=== PATIENT | female | born 1935 | race Caucasian/White ===

== ENCOUNTER 2023-12-04 15:15 | Inpatient (IN) ==
[2023-12-04] MEDS: ONDANSETRON INJ 2 MG/ML 2 ML VIAL IV STA (16:03)
[2023-12-04] MEDS: SODIUM CHLORIDE 0.9% 1,000 ML IV SCH ×2 (16:03→22:43)
[2023-12-04 16:22] LABS: Hematocrit (blood only) 25.5 % (37.0-47.0); Hemoglobin 8.2 g/dl (12.0-16.0); Mean Corpuscular Hemoglobin 30.3 pg (25.0-34.0); Mean Corpuscular Hgb Conc 32.2 g/dL (32.0-36.0); Mean Corpuscular Volume 94.1 fL (80.0-100.0); Mean Platelet Volume 8.8 fL (9.4-12.4); Nucleated RBC # (auto) 0.04 K/uL (0.00-0.12); Nucleated RBC % (auto) 0.4 %; Platelet Count 499 K/uL (130-400); RDW Coefficient of Variation 17.7 % (11.5-14.5); RDW Standard Deviation 60.3 fL (36.4-46.3); Red Blood Count 2.71 M/uL (4.20-5.40); White Blood Count 10.56 K/ul (4.8-10.8)
[2023-12-04 16:47] LABS: Albumin Globulin Ratio 0.8 (0.9-2); BUN Creatinine Ratio 27.3 (10-20); Bilirubin,Total 0.4 mg/dl (0.2-1.0); C Reactive Protein 4.28 mg/dl (0-0.5); Calcium 7.2 mg/dl (8.6-10.3); Creatinine Clr Calc Pharmacy 66.5 ml/min; Est GFR (Non-African American) 69.9 ml/min; Globulin 2.6 gm/dl (2.5-4.0); Potassium 4.5 mmol/L (3.5-5.1); Total Protein 4.6 gm/dl (6.0-8.3)
[2023-12-04 16:51] LABS: INR 1.3 (0.9-1.1); Partial Thromboplastin Ratio 1.2; Partial Thromboplastin Time 32 Seconds (21-31); Prothrombin Time 13.5 Seconds (9.0-12.0)
--- NOTE | 2023-12-04 16:51 | XRay Report ---
XR hip LT min 2V CLINICAL HISTORY: L hip drainage, s/p KIM 11/16 TECHNIQUE: 2 views of the left hip and single frontal view of the pelvis were obtained. Comparison: Comparison is made to CT head 11/13/2023 FINDINGS: Redemonstration of a fracture of the proximal femur. Total hip arthroplasty changes are again seen. S oft tissue swelling is seen. IMPRESSION: Redemonstration of femoral fracture as above. ACT 112: Negative or not required by law. Electronically signed by: Luc Bailey M.D. 12/04/2023 4:49 PM
[2023-12-04 17:10] LABS: ALC (manual) 1.16 K/uL (1.2-3.4); ANC (manual) 7.92 K/uL (1.4-6.5); Lymphocytes # (manual) 1.16 K/uL (1.2-3.4); Lymphocytes % (manual) 11 %; Metamyelocytes # (manual) 0.42 K/uL (0-0); Metamyelocytes % (manual) 4 %; Monocytes # (manual) 0.42 K/uL (0.11-0.59); Monocytes % (manual) 4 %; Myelocytes # (manual) 0.63 K/uL (0-0); Myelocytes % (manual) 6 %; Neutrophils # (manual) 7.92 K/uL (1.40-6.50); Neutrophils % (manual) 75 %; Polychromasia 2+; Toxic Granulation 1+
[2023-12-04 17:41] LABS: Appearance Urine Clear (Clear); Bacteria Urine Automated None Seen (None Seen); Bilirubin Urine 1+ (Negative); Blood Urine Negative (Negative); Cast Urine Automated 0-2 /lpf (0-2); Color Urine Dark Yellow; Epithelial Cell Urine Auto 0-2 /hpf (0-2); Glucose Urine UA Negative (Negative); Ketones Urine Negative (Negative); Leukocyte Esterase Urine Negative (Negative); Nitrite Urine Negative (Negative); Protein Urine Trace (Negative); RBC Urine Automated 0-2 /hpf (0-2); Specific Gravity Urine 1.029 (1.000-1.030); Urobilinogen Urine Positive (Negative); WBC Urine Automated 0-5 /hpf (0-5)
[2023-12-04] MEDS ORDERED: VANCOMYCIN CONSULT ACTIVE PRN (17:56)
[2023-12-04] MEDS: CEFEPIME 2,000 MG/20 ML VIAL IV STA (18:05)
[2023-12-04] MEDS: VANCOMYCIN HCL 2,000 MG in SODIUM CHLORIDE 0.9% 500 ML IV ONE (18:16)
[2023-12-04] MEDS ORDERED: CEFEPIME 2,000 MG in SYRINGE 0 ML IV STA (18:26)
--- NOTE | 2023-12-04 18:31 | History & Physical Report ---
Date of Service December 04, 2023 Assessment & Plan (1) Abscess after procedure: (2) S/P total left hip arthroplasty: (3) Wound drainage: Plan: Shirley Locke is an 87y/o F with PMHx of dyslipidemia, HTN, CKD stage III, memory impairment and other problems listed below who presented to the ED from for evaluation of left hip pain and incisional site wound drainage s/p left hip arthroplasty [11/03/2023] and was found to have an intramuscular abscess lateral to the greater trochanter. Per ED sign-out, patient has had some ongoing drainage (mostly yellow, thicker in appearance) from the incision site of her L total hip replacement [which was performed @ [facility] by Dr. Eh Myers]. She already has been having some ongoing left hip pain since the procedure per [facility] staff. * Per [facility] documentation, it appears she had another procedure for revision of her L hip arthroplasty s/p periprosthetic fx of L proximal femur on 11/17/23 [ which was done by Dr. Myers as well]. Labs show no elevation in WBC count. UA rather unremarkable, no signs of acute urinary infection. RBC 2.71, Hgb 8.2 and hematocrit 25.5. * According to [facility] documentation, appears her baseline Hgb since 11/05/23 is ~9. ESR elevated at 35, CRP elevated at 4.28 on admission. AST elevated at 67, Alk Phos 182 --> Will repeat CMP, CBC no diff in AM. * Trend slight elevation in liver enzymes tomorrow AM, more than likely reactive at this point given known source of infection [noted below]. L hip x-ray revealed redemonstration of femoral fracture, as mentioned above. L hip CT revealed the following: * Intramuscular abscess lateral to the great trochanter femur, s/p left total hip arthroplasty. * Another area/soft tissue collection in the femoral neck, along the stem of the prosthesis. --> Nonspecific, may be postsurgical. Cannot rule out phlegmon. * No new fracture or acute bony abnormality. Ortho consult was placed, appreciate their recommendations/input moving forward. * Will keep her NPO @ midnight pending potential need for surgical intervention. * Messaged Dr. Davis [Ortho] via [employer] to make him aware of the patient. * Will get EKG in AM to establish baseline findings. Was given the following in the ED: 2g IV cefepime, 2g IV vancomycin, 2mg IV morphine, 4mg IV Zofran and 1L NSS IVF. Vitals stable on admission: BP 124/80, HR 70, RR 18, no fever and 95% O2 sat on RA. Wound culture ordered in ED, results pending. -Continue IVF, slow rate. NPO @ midnight, as per above. -Will continue ABX therapy w/ daptomycin + cefepime. -Follow wound culture results, as per above. -Blood culture pending, can potentially narrow ABX coverage given results. -No need for continuous cardiac monitoring at this time. -Fall precautions, PureWick catheter in place --> Continuous managing/monitoring, I&O's. -Routine bowel regimen in place if needed. Bedrest for now. -Can continue SLOT [employer] PERSON PRN oxycodone for severe pain, PRN Tylenol in place for mild/moderate pain. -Will continue SL[employer]ERSON ferrous sulfate, methocarbamol and stool softener. (4) Memory impairment: Plan: -Continue SLOT [employer] PERSON donepezil, monitor for any signs of increasing delirium throughout hospitalization. (5) HTN (hypertension): Plan: As per above, vitals stable on admission --> BP 124/80, HR 70, RR 18, no fever and 95% O2 sat on RA. -Patient not currently on anti-hypertensive medication regimen. * Appears according to [facility] documentation that she was on metoprolol succinate in the past. -No need to initiate any anti-hypertensive therapy at this time given stable vitals. (6) Dyslipidemia: Plan: -Continue SLOT KEY PERSON simvastatin therapy while hospitalized. DVT Prophylaxis: Lovenox - Patient on this medication SLOT KEY PERSON, will continue while hospitalized. --> Unsure of previous indication for her being on this medication per chart review. Code Status: Ful Code PCP: Dorina Hodges DO Dispo: Admit to Med/Surg Patient seen in collaboration with Dr. Wood. Please see addendum. I spent a total of 75 minutes coordinating, documenting, and providing care for this patient excluding time spent in the performance of separately billed services. This included personally reviewing all current laboratories and imaging studies, medical reconciliation, outpatient chart review and discussion with specialists. This chart was completed in part utilizing Speech Voice Recognition Software. Grammatical errors, random word insertions, pronoun errors, and incomplete sentences are an occasional consequence of this system due to software limitations, ambient noise, and hardware issues. Any formal questions or concerns about the content, text, or information contained within the body of this dictation should be directly addressed to the provider for clarification. History of Present Illness Chief Complaint: Left Hip Pain, Incisional/Wound Drainage Primary Care Provider: Dorina Hodges DO Shirley Locke is an 87y/o F with PMHx of dyslipidemia, HTN, CKD stage III, memory impairment and other problems listed below who presented to the ED from for evaluation of left hip pain and incisional site wound drainage s/p left hip arthroplasty [11/03/23]. History obtained mostly from ED documentation, ED sign-out. Patient has significant hx of memory impairment, and is subsequently a poor historian. However, she was able to elaborate a little bit on what brought her in today. Per ED sign-out, patient has had some ongoing drainage (mostly yellow, thicker in appearance) from the incision site of her L total hip replacement [which was performed @ [facility] by Dr. Eh Myers]. She already has been having some ongoing left hip pain since the procedure per [facility] staff. Patient states this L hip pain "has been going on for some time now." No currently complaining of any overt pain, states she is comfortable at the moment. She wasn't having any pain at rest, only with movement per ED provider's [Dr. Brown] note. Per [facility] documentation, it appears she had another procedure for revision of her L hip arthroplasty s/p periprosthetic fx of L proximal femur on 11/17/23 [which was done by Dr. Myers as well]. Patient denies any fevers, chills or body aches. Reports she is "a little cold," but otherwise has no other complaints. Labs show no elevation in WBC count. UA rather unremarkable, no signs of acute urinary infection. RBC 2.71, Hgb 8.2 and hematocrit 25.5. * According to [facility] documentation, appears her baseline Hgb since 11/05/23 is ~9. ESR elevated at 35, CRP elevated at 4.28 on admission. AST elevated at 67, Alk Phos 182 --> Will repeat CMP, CBC no diff in AM. * Trend slight elevation in liver enzymes tomorrow AM, more than likely reactive at this point given known source of infection [noted below]. L hip x-ray revealed redemonstration of femoral fracture, as mentioned above. L hip CT revealed the following: * Intramuscular abscess lateral to the great trochanter femur, s/p left total hip arthroplasty. * Another area/soft tissue collection in the femoral neck, along the stem of the prosthesis. --> Nonspecific, may be postsurgical. Cannot rule out phlegmon. * No new fracture or acute bony abnormality. Ortho consult was placed, appreciate their recommendations/input moving forward. * Will keep her NPO @ midnight pending potential need for surgical intervention. * Messaged Dr. Davis [Ortho] via [employer] to make him aware of the patient. Was given the following in the ED: 2g IV cefepime, 2g IV vancomycin, 2mg IV morphine, 4mg IV Zofran and 1L NSS IVF. Allergies Allergy/AdvReac Type Severity Reaction Status Date / Time atenolol Allergy Unknown ON THE Verified 12/04/23 15:55 [facility] MED LIST quinidine Allergy Unknown ON THE Verified 12/04/23 15:55 [facility] MED LIST Home Medications Medication Instructions Recorded Confirmed Type simvastatin 10 mg tablet 10 mg PO HS 11/13/23 12/04/23 History Saccharomyces boulardii 250 mg 250 mg PO DAILY 12/04/23 12/04/23 History capsule (Probiotic (S.boulardii)) acetaminophen 500 mg tablet 500 mg PO ACHS 12/04/23 12/04/23 History (Tylenol Extra Strength) cefadroxil 500 mg capsule 1,000 mg PO BID 12/04/23 12/04/23 History cholecalciferol (vitamin D3) 25 25 mcg PO DAILY 12/04/23 12/04/23 History mcg (1,000 unit) capsule (Vitamin D3) donepezil 5 mg tablet (Aricept) 5 mg PO HS 12/04/23 12/04/23 History enoxaparin 40 mg/0.4 mL 40 mg subcut DAILY 12/04/23 12/04/23 History subcutaneous syringe (Lovenox) ferrous sulfate 325 mg (65 mg 325 mg PO QPM 12/04/23 12/04/23 History iron) tablet levofloxacin 250 mg tablet 250 mg PO DAILY 12/04/23 12/04/23 History methocarbamol 500 mg tablet 500 mg PO AMHS 12/04/23 12/04/23 History multivitamin 1 tab PO HS 12/04/23 12/04/23 History omega-3 fatty acids 1,000 mg 2,000 mg PO DAILY 12/04/23 12/04/23 History capsule ondansetron HCl 4 mg tablet 4 mg PO Q6H PRN NAUSEA/VOMITING 12/04/23 12/04/23 History oxycodone 5 mg tablet 5 mg PO BID 12/04/23 12/04/23 History oxycodone 5 mg tablet 5 mg PO Q6H PRN Pain 12/04/23 12/04/23 History polyethylene glycol 3350 17 17 g PO DAILY 12/04/23 12/04/23 History gram/dose oral powder (Miralax) sennosides 8.6 mg-docusate sodium 2 tab-cap PO DAILY 12/04/23 12/04/23 History 50 mg tablet (Senna-S) Past Med/Surg History Problem List (Updated 12/05/23 @ 11:30 by Jagdeep Davis M.D.) Infection of prosthetic total hip joint Dyslipidemia HTN (hypertension) Memory impairment (Acute) Wound drainage S/P total left hip arthroplasty (Acute) Abscess after procedure (Acute) Medical History Adjustment disorder with depressed mood CKD (chronic kidney disease), stage III Surgical History History of total left hip arthroplasty Social History Smoking Status: Never smoker Hx Alcohol Use: No Hx Substance Use: No Preferred Language: Malay Enrollment Services Dean Required: No Beliefs That Will Affect Care: None Current Living Situation: Personal Care Facility Current Living Situation Comment: pt states she rents out basement at a friends apartment, pt not good hx Feels Safe at Home: Yes Safety Concerns: Feels Safe At This Time Assistive Devices: Glasses, Hearing Aid - Bilateral and Hospital Bed Review of Systems Review of Systems: At least ten systems reviewed and negative, except as noted in the HPI. Physical Exam Physical Exam: General Appearance: WD/WN, vitals as above, NAD, laying in bed, resting comfortably and conversing appropriately. Head: Normocephalic, atraumatic. Eyes: Normal inspection, PERRL, conjunctivae normal, anicteric sclerae. ENT: External ear and nose normal, oropharynx normal. Neck: Normal visual inspection, trachea midline, no thyromegaly. Respiratory: Normal respiratory effort, lungs clear to auscultation, no wheeze, rales, rhonchi. No accessory muscle use. Cardiovascular: Regular rate, rhythm, no murmur, normal peripheral pulses, no BLE edema. Vessels: No JVD. Chest: Normal inspection of chest. Abdomen/GI: Normal bowel sounds, soft, nontender, no hepatosplenomegaly. Extremities/Musculoskeletal: Left hip surgical incision w/o significant erythema, bandage in place, tender to palpation. Pain w/ any movement of left hip. Neurologic: PERRL, EOMI, accommodation nl, no face palsy, no dysarthria, CN's II-XI grossly intact bilaterally. Psychiatric: A+Ox3, euthymic affect. Skin: No rashes, normal color, warm/dry. Results & Data Results & Data Vital Signs (Past 12 Hours) Vital Signs Temp Pulse Pulse Resp BP BP Pulse Ox 12/04/23 18:18 74 18 129/58 L 93 12/04/23 15:45 74 12/04/23 15:20 36.6 C 80 18 129/58 L 95 O2 Del Method 12/04/23 18:18 Room Air 12/04/23 15:45 12/04/23 15:20 Room Air Laboratory Results Short CBC 12/04/23 Range/Units 15:59 WBC 10.56 (4.8-10.8) K/ul Hgb 8.2 L (12.0-16.0) g/dl Hct 25.5 L (37.0-47.0) % Plt Count 499 H (130-400) K/uL BMP 12/04/23 15:59 Sodium 137 Potassium 4.5 Chloride 105 Carbon Dioxide 29 BUN 21 Creatinine 0.77 Glucose 111 H Calcium 7.2 L Liver Function 12/04/23 Range/Units 15:59 Total Bilirubin 0.4 (0.2-1.0) mg/dl AST 67 H (13-39) U/L ALT 28 (7-52) U/L Alkaline Phosphatase 182 H (34-104) U/L Albumin 2.0 L (3.4-5.0) gm/dl Urine 12/04/23 Range/Units 17:24 Urine Color Dark Yellow Urine Appearance Clear (Clear) Urine pH 6.0 (4.5-7.5) Ur Specific [place] 1.029 (1.000-1.030) Urine Protein Trace H (Negative) Urine Glucose (UA) Negative (Negative) Diagnostic Findings Hip X-Ray 12/04/23 15:39 XR hip LT min 2V CLINICAL HISTORY: L hip drainage, s/p KIM 11/16 TECHNIQUE: 2 views of the left hip and single frontal view of the pelvis were obtained. Comparison: Comparison is made to CT head 11/13/2023 FINDINGS: Redemonstration of a fracture of the proximal femur. Total hip arthroplasty changes are again seen. Soft tissue swelling is seen. IMPRESSION: Redemonstration of femoral fracture as above. ACT 112: Negative or not required by law. Electronically signed by: Luc Bailey M.D. 12/04/2023 4:[address] 12/04/23 18:19 Exam(s): CT LEFT HIP With Contrast IV Amt: 92 ml optitray 320 EXAM: CT Left Lower Extremity With Intravenous Contrast, Hip CLINICAL HISTORY: Reason for exam: L hip wound, infection. TECHNIQUE: Axial computed tomography images of the left hip with intravenous contrast. CTDI is 36 mGy and DLP is 1171 mGy-cm. Automated exposure control was utilized for the study. A dose lowering technique was utilized adhering to the principles of ALARA. Limited detail due to metal artifact. CONTRAST: Patient received 92 ml optiray 320 of IV contrast COMPARISON: CT left hip 11/13/23. FINDINGS: Bones/joints: Left total hip arthroplasty, stable. No new fracture. No dislocation. Soft tissues: In the soft tissues lateral to the greater trochanter, there is a septated peripheral enhancing fluid and air collection, versus 2 adjacent fluid collections, together measuring 9 x 2.4 x 1.5 cm, nonspecific, concerning for intramuscular abscess. Also, air in soft tissue are noted in the femoral neck, inseparable from the stem of the prosthesis, difficult to entirely exclude 3.4 cm phlegmon in this region. IMPRESSION: 1. Suspect intramuscular abscess lateral to the greater trochanter femur, status post left total hip arthroplasty. 2. Another area/soft tissue collection in the femoral neck, along the stem of the prosthesis, nonspecific, may be postsurgical. Cannot rule out phlegmon. 3. No new fracture or acute bony abnormality. Electronically signed by: Janice Ayon M.D. 12/04/23 20:09 PM Medications Administered Sodium Chloride (Nss) 1,000 mls @ 100 mls/hr IV .Q10H PAT Stop: 12/05/23 01:44 Last Admin: 12/04/23 16:03 Dose: 100 mls/hr Documented By: ASHIA Vancomycin HCl 2,000 mg/ (Sodium Chloride) 540 mls @ 200 mls/hr IV NOW ONE Stop: 12/04/23 20:37 Last Admin: 12/04/23 18:16 Dose: 200 mls/hr Documented By: ASHIA Discontinued Medications Cefepime HCl (Maxipime) 2,000 mg in 20 mls @ 5 mls/min IV NOW STA; Protocol Stop: 12/04/23 17:59 Last Admin: 12/04/23 18:05 Dose: 5 mls/min Documented By: ASHIA Ondansetron HCl (Ondansetron Inj 2 Mg/Ml 2 Ml Vial) 4 mg IV NOW STA Stop: 12/04/23 15:43 Last Admin: 12/04/23 16:03 Dose: 4 mg Documented By: ASHIA Code Status & VTE Plan Code Status FULL CODE VTE Prophylaxis Plan VTE Prophylaxis will be ordered: Yes Supervising Physician Co-Signing Physician Notes delayed entry date of service noted above Attending Addendum: care coordinated with HEATHER Lowe please refer to her notes for full details, I agree with her notes patient seen and examined, records reviewed by myself as well Diagnoses and plan of care as per HEATHER Lowe's notes Lamont Wood MD (5) HTN (hypertension) Hypertension type: unspecified Qualified Code(s): I10 - Essential (primary) hypertension
[2023-12-04] MEDS: MoRPHine SULFATE 4 MG/ML 1 ML CARP\\VIAL IV PRN (18:43)
[2023-12-04] MEDS: OPTIRAY 320 100ml IV ONE (19:18)
--- NOTE | 2023-12-04 20:10 | CT Scan Report ---
Exam(s): CT LEFT HIP With Contrast IV Amt: 92 ml optitray 320 EXAM: CT Left Lower Extremity With Intravenous Contrast, Hip CLINICAL HISTORY: Reason for exam: L hip wound, infection. TECHNIQUE: Axial computed tomography images of the left hip with intravenous contrast. CTDI is 36 mGy and DLP is 1171 mGy-cm. Automated exposure control was utilized for the study. A dose lowering technique was utilized adhering to the principles of ALARA. Limited detail due to metal artifact. CONTRAST: Patient received 92 ml optiray 320 of IV contrast COMPARISON: CT left hip 11/13/23. FINDINGS: Bones/joints: Left total hip arthroplasty, stable. No new fracture. No dislocation. Soft tissues: In the soft tissues lateral to the greater trochanter, there is a septated peripheral enhancing fluid and air collection, versus 2 adjacent fluid collections, together measuring 9 x 2.4 x 1.5 cm, nonspecific, concerning for intramuscular abscess. Also, air in soft tissue are noted in the femoral neck, inseparable from the stem of the prosthesis, difficult to entirely exclude 3.4 cm phlegmon in this region. IMPRESSION: 1. Suspect intramuscular abscess lateral to the greater trochanter femur, status post left total hip arthroplasty. 2. Another area/soft tissue collection in the femoral neck, along the stem of the prosthesis, nonspecific, may be postsurgical. Cannot rule out phlegmon. 3. No new fracture or acute bony abnormality. Electronically signed by: Janice Ayon M.D. 12/04/23 20:09 PM
[2023-12-04] MEDS ORDERED: MAGNESIUM HYDROXIDE SUSP 30 ML UDC PO PRN (20:38)
[2023-12-04] MEDS ORDERED: POLYETHYLENE (MIRALAX) 17 GM PACK PO PRN (20:38)
[2023-12-04] MEDS ORDERED: ONDANSETRON INJ 2 MG/ML 2 ML VIAL IV PRN (20:38)
[2023-12-04] MEDS ORDERED: ALUMINUM/MAGNESIUM SUSP 30 ML UDC PO PRN (20:38)
[2023-12-04] MEDS ORDERED: oxyCODONE HCL IR 5 MG TAB (IMMEDIATE RELEASE) PO PRN (21:26)
[2023-12-04] MEDS: DONEPEZIL HCL 5 MG TAB PO SCH (22:43)
[2023-12-04] MEDS: METHOCARBAMOL 500 MG TABLET PO SCH (22:43)
[2023-12-04] MEDS: SIMVASTATIN 10 MG TAB PO SCH (22:43)
--- NOTE | 2023-12-04 23:14 | Emergency Department Note ---
Impression & Plan S/P total left hip arthroplasty, Abscess after procedure, Memory impairment ED Provider Note CHIEF COMPLAINT: Left hip pain/drainage HISTORY OF PRESENT ILLNESS: This 87-year-old female patient past medical history of memory impairment, dyslipidemia, hypertension, left hip arthroplasty after a fall/fracture on November 02 at [facility] by Dr. Myers, presents to the emergency department with complaints of drainage from the postsurgical wound. Apparently the patient was seen yesterday and had her suri removed. She is currently taking cefadroxil for the hip as well as Levaquin for UTI. Today the nursing staff noticed "increased bleeding and drainage from the hip." Patient is not able to give any details or history. REVIEW OF SYSTEMS: Unable to obtain a full review of systems secondary to the patient's loss/dementia ALLERGIES: see below MEDICATIONS: see below PMH: see below SOCIAL HISTORY: see below DDx: Infected left hip wound, abscess, cellulitis, osteomyelitis, fatty necrosis, among others. PHYSICAL EXAM: Vital signs reviewed. General: Chronically ill-appearing 87-year-old female, in no significant distress. HEENT: No scleral icterus, PERRLA, neck supple. Moist mucous membranes. Cardiovascular: Regular rate and rhythm, no extra sounds. Pulmonary: Clear to auscultation bilaterally, normal work of breathing. Abdomen: Soft, nontender, nondistended, positive bowel sounds. Musculoskeletal: Atraumatic, no peripheral edema. Large left hip wound with purulent material from the most proximal aspect. There is about a 1 cm area of wound dehiscence. There is a small area most distally that is with minimal drainage. Neurologic: Patient awake alert and follows commands, but is pleasantly confused, speech is clear Skin: Warm, dry, no rash EMERGENCY DEPARTMENT COURSE/MDM: This patient was evaluated and appeared to be in no significant distress. IV access was obtained and laboratory work was drawn. Patient was placed on the chip person and noted to be in a normal sinus rhythm. The left hip dressing was changed x 2 by myself. There is a copious amount of fluid. A wound culture was sent. Patient's laboratory work reveals a normal WBC, elevated sedimentation rate and CRP. I suspect because the patient is on outpatient antibiotics, the WBC is fairly reasonable. I did speak with Dr. Davis is of orthopedics and reviewed the laboratory findings. As the wound itself does not appear to be overly infected however this purulent material is draining, he felt the patient could likely be evaluated Thursday morning by her surgeon. On my reevaluation, the wound was draining so significantly that I felt the patient should be treated on an inpatient status and was started on IV vancomycin and cefepime. The hospitalist service was consulted for admission and further management. Orthopedics will be consulted. Please see their notes for further details. MONITORING: An order for cardiac monitoring was placed and the patient is noted to be in a sinus rhythm at 73 beats per minute. RADIOLOGY: X-ray of the left hip to my interpretation and radiology's over read reveals hardware in place, previous fractures identified. DISPOSITION: Admission Past Med/Surg History Problem List (Updated 12/04/23 @ 23:14 by Tammie Younger MD) Dyslipidemia HTN (hypertension) Memory impairment (Acute) Wound drainage S/P total left hip arthroplasty (Acute) Abscess after procedure (Acute) Medical History Adjustment disorder with depressed mood CKD (chronic kidney disease), stage III Surgical History History of total left hip arthroplasty Social History Smoking Status: Never smoker Hx Alcohol Use: No Hx Substance Use: No Preferred Language: [place] Telecommunications Technician Required: No Beliefs That Will Affect Care: None Current Living Situation: Personal Care Facility Current Living Situation Comment: pt states she rents out basement at a friends apartment, pt not good hx Feels Safe at Home: Yes Safety Concerns: Feels Safe At This Time Assistive Devices: Glasses, Hearing Aid - Bilateral and Hospital Bed Allergies Allergies Allergy/AdvReac Type Severity Reaction Status Date / Time atenolol Allergy Unknown ON THE Verified 12/04/23 15:55 [facility] MED LIST quinidine Allergy Unknown ON THE Verified 12/04/23 15:55 [facility] Home Meds Home Medications Medication Instructions Recorded Confirmed simvastatin 10 mg tablet 10 mg PO HS 11/13/23 12/04/23 Saccharomyces boulardii 250 mg 250 mg PO DAILY 12/04/23 12/04/23 capsule (Probiotic (S.boulardii)) acetaminophen 500 mg tablet 500 mg PO [facility] 12/04/23 12/04/23 (Tylenol Extra Strength) cefadroxil 500 mg capsule 1,000 mg PO BID 12/04/23 12/04/23 cholecalciferol (vitamin D3) 25 25 mcg PO DAILY 12/04/23 12/04/23 mcg (1,000 unit) capsule (Vitamin D3) donepezil 5 mg tablet (Aricept) 5 mg PO HS 12/04/23 12/04/23 enoxaparin 40 mg/0.4 mL 40 mg subcut DAILY 12/04/23 12/04/23 subcutaneous syringe (Lovenox) ferrous sulfate 325 mg (65 mg 325 mg PO QPM 12/04/23 12/04/23 iron) tablet levofloxacin 250 mg tablet 250 mg PO DAILY 12/04/23 12/04/23 methocarbamol 500 mg tablet 500 mg PO [facility] 12/04/23 12/04/23 multivitamin 1 tab PO HS 12/04/23 12/04/23 omega-3 fatty acids 1,000 mg 2,000 mg PO DAILY 12/04/23 12/04/23 capsule ondansetron HCl 4 mg tablet 4 mg PO Q6H PRN NAUSEA/VOMITING 12/04/23 12/04/23 oxycodone 5 mg tablet 5 mg PO BID 12/04/23 12/04/23 oxycodone 5 mg tablet 5 mg PO Q6H PRN Pain 12/04/23 12/04/23 polyethylene glycol 3350 17 17 g PO DAILY 12/04/23 12/04/23 gram/dose oral powder (Miralax) sennosides 8.6 mg-docusate sodium 2 tab-cap PO DAILY 12/04/23 12/04/23 50 mg tablet (Senna-S) Results & Data (ED) Vital Signs Vital Signs - 24 hr 12/04/23 15:20 12/04/23 15:45 Temperature 36.6 C Temperature Source Oral Pulse Rate 80 74 Pulse Rhythm Irregular Pulse Strength Normal Respiratory Rate 18 Respiratory Effort / Characteristics Non-Labored Spontaneous Respiratory Depth Normal Respiratory Pattern Regular Blood Pressure 129/58 L Blood Pressure Mean 81 Pulse Oximetry 95 Oxygen Delivery Method Room Air Sepsis Recent Fever Within 48 Hours No Sepsis New/Unexplained Change in Mental Status No Sepsis Action Taken by Nursing No Action Required Home Medications Current Medication List: was personally reviewed by wv Laboratory Data Attestation: I reviewed the patient's lab results. 12/04/23 15:59 12/04/23 15:59 Lab Results 12/04/23 12/04/23 12/04/23 Range/Units 15:59 16:26 17:24 WBC 10.56 (4.8-10.8) K/ul RBC 2.71 L (4.20-5.40) M/uL Hgb 8.2 L (12.0-16.0) g/dl Hct 25.5 L (37.0-47.0) % MCV 94.1 (80.0-100.0) fL MCH 30.3 (25.0-34.0) pg MCHC 32.2 (32.0-36.0) g/dL RDW Std Deviation 60.3 H (36.4-46.3) fL RDW Coeff of Dimitrios 17.7 H (11.5-14.5) % Plt Count 499 H (130-400) K/uL MPV 8.8 L (9.4-12.4) fL Absolute Nucleated RBC 0.04 (0.00-0.12) K/uL Nucleated RBC % (auto) 0.4 % Neutrophils % (Manual) 75 % Lymphocytes % (Manual) 11 % Monocytes % (Manual) 4 % Metamyelocytes % (Man) 4 % Myelocytes % (Man) 6 % Neutrophils # (Manual) 7.92 H (1.40-6.50) K/uL Total Absolute Neuts 7.92 H (1.4-6.5) K/uL Lymphocytes # (Manual) 1.16 L (1.2-3.4) K/uL Total Abs Lymphocytes 1.16 L (1.2-3.4) K/uL Monocytes # (Manual) 0.42 (0.11-0.59) K/uL Metamyelocytes # (Man) 0.42 H (0-0) K/uL Myelocytes # (Manual) 0.63 H (0-0) K/uL Toxic Granulation 1+ Polychromasia 2+ ESR 35 H (0-30) mm/hr PT 13.5 H (9.0-12.0) Seconds INR 1.3 H (0.9-1.1) APTT 32 H (21-31) Seconds PTT Ratio 1.2 Sodium 137 (136-145) mmol/L Potassium 4.5 (3.5-5.1) mmol/L Chloride 105 (98-107) mmol/L Carbon Dioxide 29 (21-32) mmol/L Anion Gap 3 (3-11) BUN 21 (6-23) mg/dl Creatinine 0.77 (0.6-1.2) mg/dl Est Cr Clr Drug Dosing 66.5 ml/min Est GFR ( Amer) 81.0 ml/min Est GFR (Non-Af Amer) 69.9 ml/min BUN/Creatinine Ratio 27.3 H (10-20) Glucose 111 H (70-99(Fasting)) mg/dl Lactate 1.7 (0.4-2.0) mmol/L Calcium 7.2 L (8.6-10.3) mg/dl Total Bilirubin 0.4 (0.2-1.0) mg/dl AST 67 H (13-39) U/L ALT 28 (7-52) U/L Alkaline Phosphatase 182 H (34-104) U/L C-Reactive Protein 4.28 H (0-0.5) mg/dl Total Protein 4.6 L (6.0-8.3) gm/dl Albumin 2.0 L (3.4-5.0) gm/dl Globulin 2.6 (2.5-4.0) gm/dl Albumin/Globulin Ratio 0.8 L (0.9-2) Urine Color Dark Yellow Urine Appearance Clear (Clear) Urine pH 6.0 (4.5-7.5) Ur Specific [place] 1.029 (1.000-1.030) Urine Protein Trace H (Negative) Urine Glucose (UA) Negative (Negative) Urine Ketones Negative (Negative) Urine Blood Negative (Negative) Urine Nitrite Negative (Negative) Urine Bilirubin 1+ H (Negative) Urine Urobilinogen Positive H (Negative) Ur Leukocyte Esterase Negative (Negative) Urine WBC (Auto) 0-5 (0-5) /hpf Urine RBC (Auto) 0-2 (0-2) /hpf U Hyaline Cast (Auto) 0-2 (0-2) /lpf U Epithel Cells (Auto) 0-2 (0-2) /hpf Urine Bacteria (Auto) None Seen (None Seen) Administered Medications Donepezil HCl (Donepezil Hcl 5 Mg Tab) 5 mg PO HS [facility] Stop: 01/03/24 20:59 Last Admin: 12/04/23 22:43 Dose: 5 mg Documented By: CATHRYN Sodium Chloride (Nss) 1,000 mls @ 75 mls/hr IV .[id number] PAT Stop: 01/03/24 21:44 Last Admin: 12/04/23 22:43 Dose: 75 mls/hr Documented By: CATHRYN Methocarbamol (Methocarbamol 500 Mg Tablet) 500 mg PO [facility] PAT Stop: 01/03/24 20:59 Last Admin: 12/04/23 22:43 Dose: 500 mg Documented By: CATHRYN Simvastatin (Simvastatin 10 Mg Tab) 10 mg PO [facility] Stop: 01/03/24 20:59 Last Admin: 12/04/23 22:43 Dose: 10 mg Documented By: CATHRYN Discontinued Medications Sodium Chloride (Nss) 1,000 mls @ 100 mls/hr IV .Q10H [facility] Stop: 12/05/23 01:44 Last Infusion: 12/04/23 21:35 Dose: Infused Documented By: Admin: 12/04/23 16:03 Dose: 100 mls/hr Documented By: ASHIA Vancomycin HCl 2,000 mg/ (Sodium Chloride) 540 mls @ 200 mls/hr IV NOW ONE Stop: 12/04/23 20:37 Last Admin: 12/04/23 18:16 Dose: 200 mls/hr Documented By: ASHIA Cefepime HCl (Maxipime) 2,000 mg in 20 mls @ 5 mls/min IV NOW STA; Protocol Stop: 12/04/23 17:59 Last Admin: 12/04/23 18:05 Dose: 5 mls/min Documented By: ASHIA Ioversol (Optiray 320 100ml) 92 ml IV ONCE ONE Stop: 12/04/23 19:18 Last Admin: 12/04/23 19:18 Dose: 92 ml Documented By: ELMIRA Morphine Sulfate (Morphine Sulfate 4 Mg/Ml 1 Ml Carp\\Vial) 2 mg IV Q1H PRN PRN Reason: Severe Pain (Rating 7,8,9,10) Stop: 12/18/23 15:38 Last Admin: 12/04/23 18:43 Dose: 2 mg Documented By: ASHIA Ondansetron HCl (Ondansetron Inj 2 Mg/Ml 2 Ml Vial) 4 mg IV NOW STA Stop: 12/04/23 15:43 Last Admin: 12/04/23 16:03 Dose: 4 mg Documented By: ASHIA Imaging Data Radiologist's Impression: Hip X-Ray 12/04/23 15:39 XR hip LT min 2V CLINICAL HISTORY: L hip drainage, s/p KIM 11/16 TECHNIQUE: 2 views of the left hip and single frontal view of the pelvis were obtained. Comparison: Comparison is made to CT head 11/13/2023 FINDINGS: Redemonstration of a fracture of the proximal femur. Total hip arthroplasty changes are again seen. Soft tissue swelling is seen. IMPRESSION: Redemonstration of femoral fracture as above. ACT 112: Negative or not required by law. Electronically signed by: Luc Bailey M.D. 12/04/2023 4:49 PM Discharge Plan Visit Data Chief Complaint: Wound Recheck Stated Complaint: BLEEDING FROM INCESTION SITE ED Provider: Tammie Younger Discharge Problem: S/P total left hip arthroplasty, Abscess after procedure, Memory impairment Patient Disposition: Admitted As Inpatient Discharge Instructions Interventions: ED Discharge Assessment Last Done: 12/04/23 20:29
[2023-12-05] MEDS: CEFEPIME 2,000 MG in SYRINGE 0 ML IV SCH (02:08)
[2023-12-05] MEDS: DAPTOmycin 475 MG in SYRINGE 0 ML IV SCH (05:57)
[2023-12-05 07:34] LABS: Hemoglobin 8.7 g/dl (12.0-16.0); Mean Corpuscular Hemoglobin 30.5 pg (25.0-34.0); Mean Corpuscular Hgb Conc 32.2 g/dL (32.0-36.0); Mean Corpuscular Volume 94.7 fL (80.0-100.0); Mean Platelet Volume 8.8 fL (9.4-12.4); Nucleated RBC # (auto) 0.03 K/uL (0.00-0.12); Nucleated RBC % (auto) 0.3 %; Platelet Count 490 K/uL (130-400); RDW Coefficient of Variation 18.1 % (11.5-14.5); RDW Standard Deviation 62.4 fL (36.4-46.3); Red Blood Count 2.85 M/uL (4.20-5.40); White Blood Count 9.69 K/ul (4.8-10.8)
[2023-12-05 08:56] LABS: Bilirubin,Total 0.5 mg/dl (0.2-1.0); Calcium 7.2 mg/dl (8.6-10.3); Potassium 4.4 mmol/L (3.5-5.1)
[2023-12-05 09:02] LABS: Albumin Globulin Ratio 0.8 (0.9-2); BUN Creatinine Ratio 23.3 (10-20); Creatinine Clr Calc Pharmacy 85.3 ml/min; Est GFR (African American) 95.7 ml/min; Est GFR (Non-African American) 82.5 ml/min; Globulin 2.5 gm/dl (2.5-4.0); Total Protein 4.5 gm/dl (6.0-8.3)
[2023-12-05] MEDS: ENOXAPARIN INJ 40 MG/0.4 ML SYR SQ SCH (09:25)
[2023-12-05] MEDS: DOCUSATE SODIUM/SENNA 50/8.6MG TAB PO SCH (09:25)
--- NOTE | 2023-12-05 09:42 | Orthopedic Consultation ---
Date of Consultation December 05, 2023 Assessment & Plan (1) Infection of prosthetic total hip joint: She appears to have infection of her left total hip arthroplasty. I advised the patient that this is obviously a complicated issue, especially given her previous periprosthetic fracture and recent revision surgery for such. She is not systemically ill. She has been afebrile since admission, denies any significant pain in her hip, and has no systemic leukocytosis. Vitals have been stable. I discussed her situation with Dr. Myers over the phone. He agrees that she will likely require a washout surgery with implant exchange sometime in the next week. This is out of my scope. She can either be transferred down to [facility] this weekend, or she can be discharged with follow-up in Dr. Myers's clinic Thursday morning for further surgical planning. Dr. Myers is accepting of either option, and has agreed to provide further surgical care for her. History of Present Illness Reason for Consultation: "L hip wound infection s/p recent L hip replacement" Requesting Physician: ORI Lowe Attending Physician: Vlad York MD History of Present Illness Ms. Locke is an 87-year-old female who previously underwent a left total hip arthroplasty by Dr. Myers at [facility] on 11/03/23. She is in the area locally at [facility] rehab for recovery after that surgery. In reviewing previous records, she was recently seen in the emergency room on 11/13/23 due to left hip pain with movement without known injury. She was found to have a periprosthetic femur fracture and was made nonweightbearing at that time. She is then underwent a revision surgery by Dr. Myers. We do not have records available for review. The patient is accompanied by her daughter, who provides a lot of the history, as the patient is a poor historian. The daughter reports that she had her suri removed about 2 days ago after her revision surgery. In discussion with Dr. Myers, this occurred at the rehab center and not in orthopedics clinic, as apparently there was some transportation issues. After the staple removal, the rehab center staff apparently noted worsening drainage from her incision. She was then brought to our emergency room. Patient denies any fevers, chills, or night sweats. She denies any significant pain in her left hip. Since she was not systemically ill, I had recommended follow-up with Dr. Myers in orthopedics clinic on Thursday morning for further evaluation and potential treatment, but she was admitted regardless. Allergies Allergy/AdvReac Type Severity Reaction Status Date / Time atenolol Allergy Unknown ON THE Verified 12/04/23 15:55 [facility] quinidine Allergy Unknown ON THE Verified 12/04/23 15:55 [facility] Home Medications Medication Instructions Recorded Confirmed Type simvastatin 10 mg tablet 10 mg PO HS 11/13/23 12/04/23 History Saccharomyces boulardii 250 mg 250 mg PO DAILY 12/04/23 12/04/23 History capsule (Probiotic (S.boulardii)) acetaminophen 500 mg tablet 500 mg PO ACHS 12/04/23 12/04/23 History (Tylenol Extra Strength) cefadroxil 500 mg capsule 1,000 mg PO BID 12/04/23 12/04/23 History cholecalciferol (vitamin D3) 25 25 mcg PO DAILY 12/04/23 12/04/23 History mcg (1,000 unit) capsule (Vitamin D3) donepezil 5 mg tablet (Aricept) 5 mg PO HS 12/04/23 12/04/23 History enoxaparin 40 mg/0.4 mL 40 mg subcut DAILY 12/04/23 12/04/23 History subcutaneous syringe (Lovenox) ferrous sulfate 325 mg (65 mg 325 mg PO QPM 12/04/23 12/04/23 History iron) tablet levofloxacin 250 mg tablet 250 mg PO DAILY 12/04/23 12/04/23 History methocarbamol 500 mg tablet 500 mg PO AMHS 12/04/23 12/04/23 History multivitamin 1 tab PO HS 12/04/23 12/04/23 History omega-3 fatty acids 1,000 mg 2,000 mg PO DAILY 12/04/23 12/04/23 History capsule ondansetron HCl 4 mg tablet 4 mg PO Q6H PRN NAUSEA/VOMITING 12/04/23 12/04/23 History oxycodone 5 mg tablet 5 mg PO BID 12/04/23 12/04/23 History oxycodone 5 mg tablet 5 mg PO Q6H PRN Pain 12/04/23 12/04/23 History polyethylene glycol 3350 17 17 g PO DAILY 12/04/23 12/04/23 History gram/dose oral powder (Miralax) sennosides 8.6 mg-docusate sodium 2 tab-cap PO DAILY 12/04/23 12/04/23 History 50 mg tablet (Senna-S) Patient History Medical History Adjustment disorder with depressed mood CKD (chronic kidney disease), stage III Surgical History History of total left hip arthroplasty Social History Smoking Status: Never smoker Hx Alcohol Use: No Hx Substance Use: No Preferred Language: [place] Tile Setter Required: No Beliefs That Will Affect Care: None Current Living Situation: Personal Care Facility Current Living Situation Comment: pt states she rents out basement at a friends apartment, pt not good hx Feels Safe at Home: Yes Safety Concerns: Feels Safe At This Time Assistive Devices: Glasses, Hearing Aid - Bilateral and Hospital Bed Physical Exam Physical Exam: Examination of the left hip reveals erythema and induration immediately adjacent to the incision line along the majority of its length, with some mild purulent drainage. No significant diffuse swelling in the thigh. Intact ankle and toe dorsiflexion and plantarflexion. Sensation is intact to light touch. Results & Data Vital Signs (Past 12 Hours) Vital Signs Temp Pulse Resp BP Pulse Ox O2 Del Method 12/05/23 07:04 36.7 C 72 16 127/74 93 Room Air She has been afebrile since admission. Laboratory Results WBC 9.69 Hgb/Hct 8.7/27.0 ESR 35 CRP 4.28 Wound culture swab obtained in the emergency room shows rare gram-positive cocci on Gram stain. Culture is pending. Diagnostic Findings Left hip x-rays and CT scan from 12/04/23 were independently interpreted by me. They show an obvious periprosthetic femur fracture. The lesser trochanter and medial calcar appear to be fractured, with a separate fracture line extending distally into the proximal femoral diaphysis, at about the midpoint of the femoral stem. It looks like there is some subsidence of the femoral stem within the fractured femur. There does appear to be some early callus formation around the multiple fracture lines. Overall no significant change in the alignment of the periprosthetic fracture on CT scan from 12/[address] scan from 11/12. (1) Infection of prosthetic total hip joint Encounter type: initial encounter Qualified Code(s): T84.59XA - Infection and inflammatory reaction due to other internal joint prosthesis, initial encounter; Z96.649 - Presence of unspecified artificial hip joint
[2023-12-05] MEDS: ACETAMINOPHEN 325 MG TAB PO PRN (11:52)
--- NOTE | 2023-12-05 15:21 | Discharge Summary ---
Date of Service December 05, 2023 Admission HPI Per Admitting Provider Shirley Locke is an 87y/o F with PMHx of dyslipidemia, HTN, CKD stage III, memory impairment and other problems listed below who presented to the ED from [facility] for evaluation of left hip pain and incisional site wound drainage s/p left hip arthroplasty [11/03/23]. History obtained mostly from ED documentation, ED sign-out. Patient has significant hx of memory impairment, and is subsequently a poor historian. However, she was able to elaborate a little bit on what brought her in today. Per ED sign-out, patient has had some ongoing drainage (mostly yellow, thicker in appearance) from the incision site of her L total hip replacement [which was performed @ [facility] by Dr. Eh Myers]. She already has been having some ongoing left hip pain since the procedure per [facility] staff. Patient states this L hip pain "has been going on for some time now." No currently complaining of any overt pain, states she is comfortable at the moment. She wasn't having any pain at rest, only with movement per ED provider's [Dr. Brown] note. Per [facility] documentation, it appears she had another procedure for revision of her L hip arthroplasty s/p periprosthetic fx of L proximal femur on 11/17/23 [which was done by Dr. Myers as well]. Patient denies any fevers, chills or body aches. Reports she is "a little cold," but otherwise has no other complaints. Labs show no elevation in WBC count. UA rather unremarkable, no signs of acute urinary infection. RBC 2.71, Hgb 8.2 and hematocrit 25.5. * According to [facility] documentation, appears her baseline Hgb since 11/05/23 is ~9. ESR elevated at 35, CRP elevated at 4.28 on admission. AST elevated at 67, Alk Phos 182 --> Will repeat CMP, CBC no diff in AM. * Trend slight elevation in liver enzymes tomorrow AM, more than likely reactive at this point given known source of infection [noted below]. L hip x-ray revealed redemonstration of femoral fracture, as mentioned above. L hip CT revealed the following: * Intramuscular abscess lateral to the great trochanter femur, s/p left total hip arthroplasty. * Another area/soft tissue collection in the femoral neck, along the stem of the prosthesis. --> Nonspecific, may be postsurgical. Cannot rule out phlegmon. * No new fracture or acute bony abnormality. Ortho consult was placed, appreciate their recommendations/input moving forward. * Will keep her NPO @ midnight pending potential need for surgical intervention. * Messaged Dr. Davis [Ortho] via [email or web address] to make him aware of the patient. Was given the following in the ED: 2g IV cefepime, 2g IV vancomycin, 2mg IV morphine, 4mg IV Zofran and 1L NSS IVF. Admission Exam Per Admitting Provider General Appearance: WD/WN, vitals as above, NAD, laying in bed, resting comfortably and conversing appropriately. Head: Normocephalic, atraumatic. Eyes: Normal inspection, PERRL, conjunctivae normal, anicteric sclerae. ENT: External ear and nose normal, oropharynx normal. Neck: Normal visual inspection, trachea midline, no thyromegaly. Respiratory: Normal respiratory effort, lungs clear to auscultation, no wheeze, rales, rhonchi. No accessory muscle use. Cardiovascular: Regular rate, rhythm, no murmur, normal peripheral pulses, no BLE edema. Vessels: No JVD. Chest: Normal inspection of chest. Abdomen/GI: Normal bowel sounds, soft, nontender, no hepatosplenomegaly. Extremities/Musculoskeletal: Left hip surgical incision w/o significant erythema, bandage in place, tender to palpation. Pain w/ any movement of left hip. Neurologic: PERRL, EOMI, accommodation nl, no face palsy, no dysarthria, CN's II-XI grossly intact bilaterally. Psychiatric: A+Ox3, euthymic affect. Skin: No rashes, normal color, warm/dry. Principal Diagnosis Left hip surgical site infection Discharge Exam General Appearance: WD/WN, vitals as above, NAD, laying in bed, resting comfortably and conversing appropriately. Head: Normocephalic, atraumatic. Eyes: Normal inspection, PERRL, conjunctivae normal, anicteric sclerae. ENT: External ear and nose normal, oropharynx normal. Neck: Normal visual inspection, trachea midline, no thyromegaly. Respiratory: Normal respiratory effort, lungs clear to auscultation, no wheeze, rales, rhonchi. No accessory muscle use. Cardiovascular: Regular rate, rhythm, no murmur, normal peripheral pulses, no BLE edema. Vessels: No JVD. Chest: Normal inspection of chest. Abdomen/GI: Normal bowel sounds, soft, nontender, no hepatosplenomegaly. Extremities/Musculoskeletal: Left hip surgical incision w/o significant erythema, bandage in place, tender to palpation. Pain w/ any movement of left hip. Neurologic: PERRL, EOMI, accommodation nl, no face palsy, no dysarthria, CN's II-XI grossly intact bilaterally. Psychiatric: A+Ox3, euthymic affect. Skin: No rashes, normal color, warm/dry. Discharge Data Allergies Allergy/AdvReac Type Severity Reaction Status Date / Time atenolol Allergy Unknown ON THE Verified 12/04/23 15:55 [facility] quinidine Allergy Unknown ON THE Verified 12/04/23 15:55 [facility] Consultations 12/04/23 18:17 Consult Orthopedic Surgery Routine 12/04/23 18:26 ED Decision to Admit Stat Ordered Studies 12/04/23 18:19 CT hip LT w con Routine Hospital Course (1) Abscess after procedure: (2) S/P total left hip arthroplasty: (3) Wound drainage: per prior attending with addendum: Shirley Locke is an 87y/o F with PMHx of dyslipidemia, HTN, CKD stage III, memory impairment and other problems listed below who presented to the ED from [facility] for evaluation of left hip pain and incisional site wound drainage s/p left hip arthroplasty [11/03/2023] and was found to have an intramuscular abscess lateral to the greater trochanter. Per ED sign-out, patient has had some ongoing drainage (mostly yellow, thicker in appearance) from the incision site of her L total hip replacement [which was performed @ [facility] by Dr. Eh Myers]. She already has been having some ongoing left hip pain since the procedure per [facility] staff. * Per [facility] documentation, it appears she had another procedure for revision of her L hip arthroplasty s/p periprosthetic fx of L proximal femur on 11/17/23 [ which was done by Dr. Myers as well]. Labs show no elevation in WBC count. UA rather unremarkable, no signs of acute urinary infection. RBC 2.71, Hgb 8.2 and hematocrit 25.5. * According to Epic documentation, appears her baseline Hgb since 11/05/23 is ~9. ESR elevated at 35, CRP elevated at 4.28 on admission. AST elevated at 67, Alk Phos 182 --> Will repeat CMP, CBC no diff in AM. * Trend slight elevation in liver enzymes tomorrow AM, more than likely reactive at this point given known source of infection [noted below]. L hip x-ray revealed redemonstration of femoral fracture, as mentioned above. L hip CT revealed the following: * Intramuscular abscess lateral to the great trochanter femur, s/p left total hip arthroplasty. * Another area/soft tissue collection in the femoral neck, along the stem of the prosthesis. --> Nonspecific, may be postsurgical. Cannot rule out phlegmon. * No new fracture or acute bony abnormality. Ortho consult was placed, appreciate their recommendations/input moving forward. * Will keep her NPO @ midnight pending potential need for surgical intervention. * Messaged Dr. Davis [Ortho] via [employer] to make him aware of the patient. * Will get EKG in AM to establish baseline findings. Was given the following in the ED: 2g IV cefepime, 2g IV vancomycin, 2mg IV morphine, 4mg IV Zofran and 1L NSS IVF. Vitals stable on admission: BP 124/80, HR 70, RR 18, no fever and 95% O2 sat on RA. Wound culture ordered in ED, results pending. -Continue IVF, slow rate. NPO @ midnight, as per above. -Will continue ABX therapy w/ daptomycin + cefepime. -Follow wound culture results, as per above. -Blood culture pending, can potentially narrow ABX coverage given results. -No need for continuous cardiac monitoring at this time. -Fall precautions, PureWick catheter in place --> Continuous managing/monitoring, I&O's. -Routine bowel regimen in place if needed. Bedrest for now. -Can continue [employer] PRN oxycodone for severe pain, PRN Tylenol in place for mild/moderate pain. -Will continue [employer] ferrous sulfate, methocarbamol and stool softener. (4) Memory impairment: -Continue [employer] donepezil, monitor for any signs of increasing delirium throughout hospitalization. (5) HTN (hypertension): As per above, vitals stable on admission --> BP 124/80, HR 70, RR 18, no fever and 95% O2 sat on RA. -Patient not currently on anti-hypertensive medication regimen. * Appears according to [facility] documentation that she was on metoprolol succinate in the past. -No need to initiate any anti-hypertensive therapy at this time given stable vitals. (6) Dyslipidemia: -Continue [employer] simvastatin therapy while hospitalized. DVT Prophylaxis: Lovenox - Patient on this medication [employer], will continue while hospitalized. --> Unsure of previous indication for her being on this medication per chart review. Code Status: Ful Code PCP: Dorina Hodges DO Dispo: Admit to Med/Surg Patient seen in collaboration with Dr. Wood. Please see addendum. I spent a total of 75 minutes coordinating, documenting, and providing care for this patient excluding time spent in the performance of separately billed services. This included personally reviewing all current laboratories and imaging studies, medical reconciliation, outpatient chart review and discussion with specialists. This chart was completed in part utilizing Speech Voice Recognition Software. Grammatical errors, random word insertions, pronoun errors, and incomplete sentences are an occasional consequence of this system due to software limitations, ambient noise, and hardware issues. Any formal questions or concerns about the content, text, or information contained within the body of this dictation should be directly addressed to the provider for clarification. 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 Orthopedic evaluated the patient, recommended transfer to [facility]. Patient agreeable. Patient was started on cefepime and daptomycin here, patient hemodynamically stable and is being transferred to [facility]. Statin on hold. Home Health Attestation I certify that this patient is under my care and that I, or a physicians primary teaching assistant working with me, had a face to-face encounter that meets the home health [id number] encounter requirements with this patient. The encounter with the patient was in whole, or in part, for the following medical condition, which is the primary reason for home health care (list medical condition): I certify that, based on my findings, the following services are medically necessary home health services: My clinical findings support the need for the above services because: Further, I certify that my clinical findings support that this patient is homebound (i.e. absences from home require considerable and taxing effort and are for medical reasons or buddhism services or infrequently or of short duration when for other reasons) because: Certification for Home Health Services: Based on the above findings, I certify that this patient is confined to the home and needs intermittent mcfp care, physical therapy and/or speech therapy or continues to need occupational therapy. The patient is under my care, and I have initiated the establishment of the plan of care. This patient will be followed by a physician who will periodically review the plan of care. 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 Your prior to arrival home medication will be continued as it is in discharge med rec. Your current inpatient medication will be copied and pasted here for the sake of comparison at [facility]. Statin was put on hold. Current Inpatient Medications Acetaminophen (Acetaminophen 325 Mg Tab) 650 mg PO Q4H PRN PRN Reason: pain/fever Stop: 01/03/24 20:37 Last Admin: 12/05/23 11:52 Dose: 650 mg Al Hydrox/Mg Hydrox/Simethicone (Aluminum/Magnesium Susp 30 Ml Udc) 30 ml PO Q6H PRN PRN Reason: Dyspepsia Stop: 01/03/24 20:37 Donepezil HCl (Donepezil Hcl 5 Mg Tab) 5 mg PO HS PAT Stop: 01/03/24 20:59 Last Admin: 12/04/23 22:43 Dose: 5 mg Enoxaparin Sodium (Enoxaparin Inj 40 Mg/0.4 Ml Syr) 40 mg SQ DAILY PAT Stop: 01/04/24 08:59 Last Admin: 12/05/23 09:25 Dose: 40 mg Ferrous Sulfate (Ferrous Sulfate 325 Mg Tab) 325 mg PO QPM PAT Stop: 01/04/24 20:59 Daptomycin 475 mg/ Syringe 9.5 mls @ 4.196 mls/min IV Q24H PAT; Protocol Stop: 01/16/24 04:59 Last Admin: 12/05/23 05:57 Dose: 4.196 mls/min Cefepime HCl 2,000 mg/ Syringe 20 mls @ 5 mls/min IV Q8H PAT; Protocol Stop: 01/16/24 01:59 Last Admin: 12/05/23 11:35 Dose: 5 mls/min Sodium Chloride (Nss) 1,000 mls @ 75 mls/hr IV .[id number] PAT Stop: 01/03/24 21:44 Last Admin: 12/05/23 11:51 Dose: 75 mls/hr Magnesium Hydroxide (Magnesium Hydroxide Susp 30 Ml Udc) 30 ml PO Q6H PRN PRN Reason: Constipation Stop: 01/03/24 20:37 Methocarbamol (Methocarbamol 500 Mg Tablet) 500 mg PO [facility] Stop: 01/03/24 20:59 Last Admin: 12/05/23 09:25 Dose: 500 mg Ondansetron HCl (Ondansetron Inj 2 Mg/Ml 2 Ml Vial) 4 mg IV Q6H PRN PRN Reason: Nausea Stop: 01/03/24 20:37 Oxycodone HCl (Oxycodone Hcl Ir 5 Mg Tab (Immediate Release)) 5 mg PO Q6H PRN PRN Reason: Severe Pain (Scale 7, 8, 9,10) Stop: 12/18/23 21:25 Polyethylene Glycol (Polyethylene (Miralax) 17 Gm Pack) 17 gm PO DAILY PRN PRN Reason: Constipation Stop: 01/03/24 20:37 Senna/Docusate Sodium (Docusate Sodium/Senna 50/8.6mg Tab) 2 tab PO DAILY [facility] Stop: 01/04/24 08:59 Last Admin: 12/05/23 09:25 Dose: 2 tab Simvastatin (Simvastatin 10 Mg Tab) 10 mg PO HS [facility] Stop: 01/03/24 20:59 Last Admin: 12/04/23 22:43 Dose: 10 mg Pending Studies at Discharge: Yes Stand-Alone Forms: [facility] Skilled Items Patient informed of condition?: Yes DNR: No Discharge Level of Care: Other Communicable Disease: No Discharge Prognosis: Stable Lines: Peripheral IV Urinary Catheter: Yes Medications and DC Order Prescriptions: Continued simvastatin 10 mg tablet 10 mg PO HS multivitamin Tablet 1 tab PO HS methocarbamol 500 mg Tablet 500 mg PO [facility] donepezil [Aricept] 5 mg Tablet 5 mg PO HS omega-3 fatty acids 1,000 mg Capsule 2,000 mg PO DAILY sennosides-docusate sodium [Senna-S] 8.6-50 mg Tablet 2 tab-cap PO DAILY levofloxacin 250 mg Tablet 250 mg PO DAILY Rx Instructions: STARTED 12/03/23 FOR 6 DAYS acetaminophen [Tylenol Extra Strength] 500 mg Tablet 500 mg PO ACHS cefadroxil 500 mg Capsule 1,000 mg PO BID Rx Instructions: STARTED 12/03/23 FOR 7 DAYS ferrous sulfate 325 mg (65 mg iron) Tablet 325 mg PO QPM Rx Instructions: EVERY AFTERNOON, MUST BE GIVEN 4 HRS PRIOR TO ANTIBIOTICS polyethylene glycol 3350 [Miralax] 17 gram/dose Powder 17 g PO DAILY oxycodone 5 mg Tablet 5 mg PO BID oxycodone 5 mg Tablet 5 mg PO Q6H PRN (Reason: Pain) cholecalciferol (vitamin D3) [Vitamin D3] 25 mcg (1,000 unit) Capsule 25 mcg PO DAILY enoxaparin [Lovenox] 40 mg/0.4 mL Syringe 40 mg SUBCUT DAILY Saccharomyces boulardii [Probiotic (S.boulardii)] 250 mg Capsule 250 mg PO DAILY ondansetron HCl [Zofran] 4 mg Tablet 4 mg PO Q6H PRN (Reason: NAUSEA/VOMITING) Discharge Orders: Discharge Order (Routine); Ordered 12/05/23 Ordered By: Vlad York Admission Data Admit Date/Time: 12/04/23 18:15 Attending Provider: Vlad York Admit Provider: Lamont Wood Primary Care Provider: Dorina Hodges Other Providers: Jagdeep Davis; Lamont Wood
[2023-12-05] MEDS ORDERED: FERROUS SULFATE 325 MG TAB PO SCH (21:00)
--- NOTE | 2023-12-07 06:23 | Electrocardiogram Report ---
Test Reason : Blood Pressure : / mmHG Vent. Rate : 074 BPM Atrial Rate : 074 BPM P-R Int : 178 ms QRS Dur : 110 ms QT Int : 378 ms P-R-T Axes : 052 -38 067 degrees QTc Int : 419 ms Sinus rhythm with occasional Premature ventricular complexes Left axis deviation Abnormal ECG No previous ECGs available Confirmed by Beau Amaya ([id number]) on 12/07/2023 6:23:07 AM Referred By: REFERRED SELF Confirmed By:Beau Amaya
== END 2023-12-05 20:28 | disposition short-term general hospital (02) | DRG 560 ==
LOC: ED 15:15 → SUATTDRO 18:15 → 3W 18:15

== ENCOUNTER 2024-08-20 15:23 | Inpatient (IN) ==
--- OUTSIDE RECORDS SUMMARY | 2024-08-20 15:28 | External Medical Summary | Summary of Care ---
Author Name Unknown Organization [facility] Address [address] [place] [address] Phone [phone] Care Team Providers Care Motor Equipment Captain Name Role Phone Carroll Dorina Drew DO Primary Care Provider [phone] Reason for Visit * Reason Onset Date Comments Re-Check Medication Administration 04/15/2024 Flu an d/or Pneumo Inj Encounter Details Date Type Department Care Team (Late st Contact Info) Description 04/15/2024 2:00 PM EDT Office Visit Family Practice [facility] [address] [facility] [place] [id number] Zara Aparicio MD [address] [facility] [place] [address] HTN, goal below 140/90*; Adjustment disorder with depressed mood; Iron deficiency anemia, unspecified iron deficiency anemia type; S/P total left hip arthroplasty; Need for prophylactic vaccination and inoculation against influenza; OAB (overactive bladder) Allergies No known active allergiesdocumented as of this encounter (statuses as of 04/15/2024) Medications Medication Sig Dispensed Refills Start Date End Date Status Acetaminophen 500 MG Oral Tablet (Tylenol) Take 1 Tablet by mouth every 4 hours as needed. Active Cholecalciferol 25 MCG (1000 UT) Oral Tablet Take 2 Tablets by mouth in the morning. Active Ginkgo Biloba Extract 40 MG Oral Capsule Take 1 Capsule by mouth in the morning. Active Multi-Vitamin Oral Tablet Take 1 Tablet by mouth in the morning. Active Naproxen Sodium 220 MG Oral Capsule Take 1 Capsule by mouth 2 times a day as needed for Pain, Breakthrough. Active [place] 3 1000 MG Oral Capsule Take 2 g by mouth in the morning. Active Simvastatin 10 MG Oral Tablet (Zocor) Take 1 Tablet by mouth at bedtime. Active Aspirin 81 MG Oral Tablet Delayed Release Take 1 Tablet by mouth in the morning. Active Iron (Ferrous Sulfate) 325 (65 Fe) MG Oral Tablet Take by mouth. Active Polyethylene Glycol 3350 17 GM/SCOOP Oral Powder (ClearLax) Take 17 g by mouth in the morning. Active Donepezil HCl 5 MG Oral Tablet (Aricept) Take 1 Tablet by mouth in the morning. 90 Tablet 3 02/01/2024 Active Metoprolol Succinate ER 25 MG Oral Tablet Extended Release 24 Hour (toPROL XL) Take 1 Tablet by mouth in the morning. 90 Tablet 3 02/01/2024 Active Solifenacin Succinate 5 MG Oral Tablet (VESIcare)Indicati ons:OAB (overactive bladder),Urge incontinence of urine,Urinary urgency Take 1 Tablet by mouth in the morning. 30 Tablet 11 04/07/2024 Active Methocarbamol 500 MG Oral Tablet (Robamol) Take 1 Tablet by mouth in the morning and 1 Tablet before bedtime. 4 Tablet 01/27/2024 04/15/2024 Discontinued Furosemide 40 MG Oral Tablet (Lasix) Take 1 Tablet by mouth daily. 30 Tablet 5 02/01/2024 04/15/2024 Discontinued documented as of this encounter (statuses as of 04/15/2024) Active Problems Problem Noted Date Diagnosed Date Memory impairment 10/22/2023 Adjustment disorder with depressed mood 10/22/19 24 HTN, goal below 140/90 10/22/2023 Dyslipidemia, goal LDL below 70 10/22/2023 Stage 3a chronic kidney disease 10/22/2023 documented as of this encounter (statuses as of 04/15/2024) Resolved Problems Problem Noted Date Diagnosed Date Resolved Date Unspecified dementia, unspec ified severity, without behavioral disturbance, psychotic disturbance, mood disturbance, and anxiety 01/28/2024 01/28/2024 documented as of this encounter (statuses as of 04/15/2024) Immunizations Name Administration Dates Next Due Seasonal Influenza, High Dos e, Trivalent, PF, IM (Fluzone HD) 04/15/2024 documented as of this encounter Social History Tobacco Use Types Packs/Day Years Used Date Smoking Tobacco: Never Passive Smoke Exposure: Never Smokeless Tobacco: Never Alcohol Use Standard Drinks/Week Comments Never 0 (1 standard drink = 0.6 oz pur e alcohol) Utilities Answer Date Recorded Do you have trouble paying y our heating, water, or electric bill? (Adult - for ages 18 years and over) Not on file 12/22/2023 Is your family able to pay t he heat, water, or electric bill? (Household - for ages 0-17 years) Not on file 12/22/2023 Does your family have access to good internet? (Household - for ages 0-17 years) Not on file 12/22/2023 Social Connections Answer Date Recorded How often do you feel lonely or isolated from those around you? (Adult - for ages 18 years and over) Not on file 12/22/2023 Sex and Gender Information Value Date Recorded Sex Assigned at Not on file Gender Identity Not on file Sexual Orientation Not on file Job Start Date Occupation Industry Not on file Not on file Not on file documented as of this encounter Last Filed Vital Signs Vital Sign Reading Time Taken Comments Blood Pressure 120/80 04/15/2024 2:11 PM EDT Pulse 65 04/15/2024 2:11 PM EDT Temperature 36.1 C (96.9 F) 04/15/2024 2:11 PM ED T Respiratory Rate 16 04/15/2024 2:11 PM EDT Oxygen Saturation 93% 04/15/2024 2:11 PM EDT Inhaled Oxygen Concentration - - Weight 97.1 kg (214 lb) 04/15/2024 2:11 PM EDT Height - - Body Mass Index 31.6 04/04/2024 12:32 PM EDT documented in this encounter Patient Instructions * Patient Instructions* Zara Aparicio MD - 04/15/2024 2:44 PM EDT Next Steps: -- stop iron supplements -- switch Vesicare to supper time -- okay to cancel liver ultrasound. We can check liver tests with next blood draw, and if still elevated can discuss. -- stop Lasix. Call if swelling returns. documented in this encounter Progress Notes * Zara Aparicio MD - 04/15/2024 2:24 PM EDT Images from the original note were not included. Subjective Trey Locke is a 88 year old female that presents for Re-Check and Medication Administration (Fluand/or Pneumo Inj) Accompanied by daughter Marleen. She lives with Marleen. History of Present Illness The patient, with a history of bilateral hip replacements, presents for a follow-up visit after a complicated course with the left hip replacement. The left hip replacement was performed on November 02, following a successful right hip replacement. However, the left hip replacement became loose due to a broken lesser trochanter, necessitating a revision surgery with a longer prosthesis. Postoperatively, the patient developed an infection, which was managed with surgical debridement. The patient is now living with her daughter and reports being able to walk to the bathroom, eat, work on puzzles, read, watch TV, and write independently. She requires assistance with showering and dressing. The patient also has a history of multiple skin cancers, which have been removed. She is currently taking vitamin D and iron supplements, the latter of which was started after significant blood loss from the hip surgeries. The patient also has a history of aneurysm of the descending aorta, which isbeing monitored but not actively treated due to the patient's age and preference for less aggressive care. She took Lasix for a time after bilateral lower extremity edema after hip surgery. However edema resolved and Lasix was causing trouble with frequent urination. They stopped awhile ago and have no desire to resume. An abdominal ultrasound was ordered for abnormal liver function tests. Daughter wonders if this is strictly necessary given trey's desire for minimal interventions. Cortisone injections in both knees have been life changing, rarely asks for analgesia. Wonders if can switch VESIcare to evening as that is when most of her bladder symptoms present. Lived independently in [place] until the springtime. Has 3 sons who visit regularly, 1 has power ofattorney. Daughter says she has a living will. Current medications and allergies reviewed. Past medical history and problem list reviewed. Objective Vitals: 04/15/24 1411 Temp: 36.1 C (96.9 F) Pulse: 65 Resp: 16 SpO2: 93% BP: 120/80 BP Readings from Last 3 Encounters: 04/15/24 120/80 04/04/24 126/80 02/26/24 116/78 Wt Readings from Last 3 Encounters: 04/15/24 97.1 kg (214 lb) 04/04/24 95.3 kg (210 lb 3.2 oz) 02/26/24 93.5 kg (206 lb 0.6 oz) Physical Exam Vitals and nursing note reviewed. Constitutional: General: She is not in acute distress. Appearance: Normal appearance. Comments: Sitting comfortably in wheelchair. Uses walker at home Cardiovascular: Rate and Rhythm: Normal rate and regular rhythm. Heart sounds: No murmur heard. Pulmonary: Effort: Pulmonary effort is normal. No respiratory distress. Breath sounds: Normal breath sounds. No rales. Abdominal: General: Abdomen is flat. Bowel sounds are normal. There is no distension. Palpations: Abdomen is soft. There is no mass. Tenderness: There is no abdominal tenderness. There is no guarding or rebound. Hernia: No hernia is present. Musculoskeletal: Right lower leg: No edema. Left lower leg: No edema. Skin: Comments: Numerous seborrheic keratoses Neurological: Mental Status: She is alert. Psychiatric: Mood and Affect: Mood normal. Behavior: Behavior normal. I have reviewed the following results: Results LABS BNP: elevated (01/2024) Hb: normal (01/2024) LFTs: mildly elevated (01/2024) DIAGNOSTIC BNP, CMP, Lipid Panel, TSH, and BMP Echocardiogram 04/2024: Mild concentric LVH, grade 2 diastolic dysfunction, mild aortic sclerosis with mild regurgitation, mild tricuspid regurgitation, mild aortic root enlargement. 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 Currently ambulatory with walker assistance, no reported pain. -No changes to current management. Overactive Bladder Recently started on VESIcare, considering timing adjustment to manage nocturnal symptoms. -Shift VESIcare to supper time. -Contact urogynecology if unusual side effects occur. Heart Failure History of elevated BNP and left ventricular hypertrophy. No current symptoms of fluid overload, noLasix use. -Discontinue Lasix. -Monitor for signs of fluid overload (leg swelling, shortness of breath). Iron Deficiency Anemia History of anemia post-hip surgeries, currently on iron supplementation. Recent labs show normal values. -Discontinue iron supplementation. Liver Function Mildly elevated liver function tests, previously ordered liver ultrasound. -Cancel liver ultrasound. -Check liver function tests at next blood draw. General Health Maintenance -Continue Vitamin D supplementation. -Continue Ginkgo Biloba, ensure all providers are aware of its use. -Return for follow-up in six months. HTN, goal below 140/90 (Primary) Adjustment disorder with depressed mood Iron deficiency anemia, unspecified iron deficiency anemia type S/P total left hip arthroplasty Need for prophylactic vaccination and inoculation against influenza - INFLUENZA VAC., TRIVALENT, HD, PF, 65 AND ABOVE, 0.5 ML IM (FLUZONE HD) OAB (overactive bladder) Wrap-Up Follow Up: Return in about 6 months (around 10/14/2024) for Return with Carroll. | For: Return with Carroll Time: I spent a total of 30-39 minutes (exact time 34 mins) on the date of service in preparation, delivery, and documentation of the care provided to Trey Locke excluding any time spent in the performance of separately billed services. Text in this note was generated using an ambient documentation service. I discussed the use of a device to record and summarize our discussion today. All persons present during the encounter consented to its use. documented in this encounter Nursing Notes * Latoya Boykin LPN - 04/15/2024 2:07 PM EDT 3 month follow up Question about solifenacin - states she doesn't have much trouble with going to the bathroom a lot during the day, the issue seems to be more at night. Asking if med would be better to take at night Liver US needed? documented in this encounter Plan of Treatment Upcoming Encounters Date Type Department Care Team (Late st Contact Info) Description 05/02/2024 1:15 PM EDT Imaging Radiology [facility] 2nd Floor, [address] [place] [address] 05/20/2024 3:35 PM EST Office Visit Urogynecology [facility] [address] [place] [address] Maribel Mills PA-C [address] [place] [address] Nurse Pietro Monzon [place] [address] [place] [address] 10/18/2024 1:20 PM EDT Office Visit Family Practice [facility] [address] [place] [id number] Dorina Hodges DO [address] [place] [address] Health Maintenance Due Date Last Done Comments Depression Screening 1947 Albumin/Creatinine Ratio 1954 DTap/Tdap Vaccines (1 - Tdap) 12/08/1955 Zoster Vaccines (1 of 2) 1986 Pneumococcal Vaccine: 65+ Years (1 of 1 - PCV) 2001 Adult Wellness Visit 2002 COVID-19 Vaccine ( season) 2024 09/07/2023, 09/07/2023, 10/05/2021, Additional history exists CKD HGB USE SMARTSET 03721 01/27/202501/27, 01/28/2024, 12/09/2023, Additional history exists CKD PHOS USE SMARTSET 65915 01/27/2025 01/28/2024 DXA Scan 03/14/2034 03/14/2024 Influenza Vaccine (FLU shot) Completed 05/2024, 05/18/2023, 05/01/2022, Additional history exists HPV (Gardasil) Vaccine Aged Out No lo nger eligible based on patient's age to complete this topic Hepatitis B Vaccine Aged Out No longe r eligible based on patient's age to complete this topic MENINGOCOCCAL (MENACTRA/MENVEO) Aged Out No longer eligible based on patient's age to complete this topic documented as of this encounter Medical Devices Not on filedocumented as of this encounter Visit Diagnoses Diagnosis HTN, goal below 140/90- Primary Unspecified essential hypertension Adjustment disorder with depressed mood Iron deficiency anemia, unspecified iron deficiency anemia type S/P total left hip arthroplasty Need for prophylactic vaccination and inoculation against influenza OAB (overactive bladder) Hypertonicity of bladder documented in this encounter Care Teams Motor Equipment Captain Relationship Specialty Start Date End Date Dorina Hodges DO [address] [place] [address] PCP - General Family Medicine 09/22/23 documented as of this encounter"
--- OUTSIDE RECORDS SUMMARY | 2024-08-20 15:28 | External Medical Summary | Summary of Care ---
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 Urology Diagnoses OAB (overactive bladder) Dorina Reina DO [address] [place] [address] Referral ID Status Reason Start Date Expiration Date Visits Requested Visits Authorized [id number] Authorized Specialty Services Required 02/22/[id number] Encounter Details Date Type Department Care Team (Late st Contact Info) Description 04/04/2024 12:35 PM EDT Office Visit Urogynecologjaved Monzon [address] [place] [address] Maribel Mills PA-C [address] [place] [address] Nurse Pietro Monzon [address] [place] [address] Urge incontinence of urine*; OAB (overactive bladder); Urinary urgency Allergies No known active allergiesdocumented as of this encounter (statuses as of 04/04/2024) Medications Medication Sig Dispensed Refills Start Date [...] day as needed for Pain, Breakthrough. Active Starks 3 1000 MG Oral Capsule Take 2 g by mouth in the morning. Active Simvastatin 10 MG Oral Tablet (Zocor) Take 1 Tablet by mouth at bedtime. Active Methocarbamol 500 MG Oral Tablet (Robamol) Take 1 Tablet by mouth in the morning and 1 Tablet before bedtime. 4 Tablet 01/27/2024 Active Aspirin 81 MG Oral Tablet Delayed Release Take 1 Tablet by mouth in the morning. Active Iron (Ferrous Sulfate) 325 (65 Fe) MG Oral Tablet Take by mouth. Active Polyethylene Glycol 3350 17 GM/SCOOP Oral Powder (ClearLax) Take 17 g by mouth in the morning. Active Furosemide 40 MG Oral Tablet (Lasix) Take 1 Tablet by mouth daily. 30 Tablet 5 02/01/2024 Active Donepezil HCl 5 MG Oral Tablet (Aricept) Take 1 Tablet by mouth in the morning. 90 Tablet 3 02/01/2024 Active Metoprolol Succinate ER 25 MG Oral Tablet Extended Release 24 Hour (toPROL XL) Take 1 Tablet by mouth in the morning. 90 Tablet 3 02/01/2024 Active Mirabegron ER 25 MG Oral Tablet Extended Release 24 Hour (Myrbetriq)Indications :OAB (overactive bladder),Urinary urgency,Urge incontinence of urine Take 1 Tablet by mouth in the morning. 30 Tablet 11 04/04/2024 Active documented as of this encounter (statuses as of 04/04/2024) Active Problems Problem Noted Date Diagnosed Date Memory impairment 10/22/2023 Adjustment disorder with depressed mood 10/22/19 24 HTN, goal below 140/90 10/22/2023 Dyslipidemia, goal LDL below 70 10/22/2023 Stage 3a chronic kidney disease 10/22/2023 documented as of this encounter (statuses as of 04/04/2024) Resolved Problems Problem Noted Date Diagnosed Date Resolved Date Unspecified dementia, unspec ified severity, without behavioral disturbance, psychotic disturbance, mood disturbance, and anxiety 01/28/2024 01/28/2024 documented as of this encounter (statuses as of 04/04/2024) Social History Tobacco Use Types Packs/Day Years [...] Sign Reading Time Taken Comments Blood Pressure 126/80 04/04/2024 12:32 PM EDT Pulse - - Temperature - - Respiratory Rate - - Oxygen Saturation - - Inhaled Oxygen Concentration - - Weight 95.3 kg (210 lb 3.2 oz) 04/04/2024 12:32 PM EDT Height 175.3 cm (5' 9") 04/04/2024 12:32 PM EDT Body Mass Index 31.04 04/04/2024 12:32 PM EDT documented in this encounter Progress Notes * Maribel Mills PA-C - 04/04/2024 12:41 PM EDT HPI: Shirley Locke is a 88 year old P4 female presents with her daughter, Marleen, for evaluation forurinary incontinence. Marleen provides some of the history. Shirley complains of nighttime urinary incontinence that has been ongoing for years. States she had eye issues that were preventing use of OAB medications which have resolved. States her leakage occursfollowing strong urge to void which wakes her from sleep about 5x nightly. She has leakage if she cannot make it to the bathroom in time, unsure if large or small volume. She rarely has daytime incontinence. Daytime frequency every 3 hours. Denies symptoms of pelvic pressure or vaginal bulge. Bowels move well, no concerns. Patient was referred by Dorina Reina DO. Urinary: She leaks with urgency, mostly at nighttime. Overall, she leaks moderately every day. She uses one to two incontinence briefs nightly for protection. She denies a sense of incomplete bladder emptying. Prior/current treatment include: n/a UTI: Denies recent UTIs. Voiding detail: Daytime frequency: about every 3 hours. Urgency: yes, only at nighttime Nocturia: 5x nightly Hesitancy: no Straining: no Hematuria: no Postvoid dribbling: no Postvoid urgency: no Manual reduction: no Prolapse: She denies a palpable bulge or symptoms of pelvic pressure. GI: Bowel habits: normal bowel movement She denies fecal incontinence. Prior/ current treatments include: none P4 Weight of largest baby: 7lbs Vaginal deliveries: 4 C/S: 0 No past medical history on file. Patient sees Dorina Reina DO as her primary care provider. No past surgical history on file. Review of patient's allergies indicates: No Known Allergies Current Outpatient Medications Medication Sig Dispense Refill Acetaminophen 500 MG Oral Tablet (Tylenol) Take 1 Tablet by mouth every 4 hours as needed. Cholecalciferol 25 MCG (1000 UT) Oral Tablet Take 2 Tablets by mouth in the morning. Ginkgo Biloba Extract 40 MG Oral Capsule Take 1 Capsule by mouth in the morning. Multi-Vitamin Oral Tablet Take 1 Tablet by mouth in the morning. Naproxen Sodium 220 MG Oral Capsule Take 1 Capsule by mouth 2 times a day as needed for Pain, Breakthrough. Starks 3 1000 MG Oral Capsule Take 2 g by mouth in the morning. Simvastatin 10 MG Oral Tablet (Zocor) Take 1 Tablet by mouth at bedtime. Aspirin 81 MG Oral Tablet Delayed Release Take 1 Tablet by mouth in the morning. Iron (Ferrous Sulfate) 325 (65 Fe) MG Oral Tablet Take by mouth. Polyethylene Glycol 3350 17 GM/SCOOP Oral Powder (ClearLax) Take 17 g by mouth in the morning. Metoprolol Succinate ER 25 MG Oral Tablet Extended Release 24 Hour (toPROL XL) Take 1 Tablet by mouth in the morning. 90 Tablet 3 Mirabegron ER 25 MG Oral Tablet Extended Release 24 Hour (Myrbetriq) Take 1 Tablet by mouth in the morning. 30 Tablet 11 Methocarbamol 500 MG Oral Tablet (Robamol) Take 1 Tablet by mouth in the morning and 1 Tablet before bedtime. 4 Tablet 0 Furosemide 40 MG Oral Tablet (Lasix) Take 1 Tablet by mouth daily. 30 Tablet 5 Donepezil HCl 5 MG Oral Tablet (Aricept) Take 1 Tablet by mouth in the morning. 90 Tablet 3 No current facility-administered medications for this visit. Family History Problem Relation Name Age of Onset Cancer Mother Cancer Grandmother (Maternal) ROS: ROS was performed. Pertinent positives and negatives are documented in the HPI. All others were negative or non contributory. Constitutional: no weight loss, weakness or fatigue Head: no headache Eyes: no worsening of vision Resp: no recent change in breathing Cardiac: no chest pain, palpitations, dyspnea on exertion Breast: no breast lumps, masses, nipple discharge GI: no heartburn, diarrhea, constipation, nausea, vomiting, appetite OK Musculoskeletal: no significant joint/muscle pain or swelling Female : as per HPI Neuro: no weakness, numbness or tingling Psych: denies feeling down, depressed or hopeless in past month, denies being bothered by little interest or pleasure in doing things in past month and no insomnia Heme: no fever, no chills, no sweats and no bleeding/bruising Endo: no unplanned weight change, diaphoresis or hot/cold intolerance Skin: no rash, no itching and no new/changing skin lesion BP 126/80 | Ht 1.753 m (5' 9") | Wt 95.3 kg (210 lb 3.2 oz) | LMP (LMP Unknown) | BMI 31.04 kg/m | BSA 2.15 m GENERAL: alert, healthy, no distress, well nourished PELVIC: deferred PVR: 0mL via bladder scan Impression: (N39.41) Urge incontinence of urine (primary encounter diagnosis) (N32.81) OAB (overactive bladder) (R39.15) Urinary urgency Plan: Discussed limiting caffeine intake and practicing daily kegel exercises. Discussed OAB medications, patient would like to start with Myrbetriq ER 25mg. Risks, benefits and alternatives reviewed. Discussed anticholinergics and risk for side effects including dry eyes, dry mouth, constipation and cognitive/memory issues. Patient has documented memory issues and is currently taking Aricept. Would avoid anticholinergics due to this. Follow up in 6 weeks or sooner as needed. I spent a total of 30-39 minutes (exact time 30 mins) on the date of service in preparation, delivery, and documentation of the care provided to Shirley Lcoke excluding any time spent in the performance of separately billed services. Maribel Mills PA-C 04/04/2024 12:41 PM Maribel Mills PA-C Urogynecology [address] [place] [address] documented in this encounter Nursing Notes * Mercedes York TECH - 04/04/2024 12:37 PM EDT Patient here for consult Medications, allergies, and medical and surgical histories have been reviewed and updated. The last PAP smear was done unknown She does not do a monthly SBE. The last mammogram was done bilateral mastectomy. The patient is referred by Dr. Reina for OAB. She has been experiencing this problem since years and it has worsened. She does not require a pad to protect her clothing. Depends at night documented in this encounter Plan of Treatment Upcoming Encounters Date Type Department Care Team (Late st Contact Info) Description 04/13/2024 3:30 PM EDT Cardiac Studies Cardiac Studies, [facility] [address] [place] [address] 04/15/2024 2:00 PM EDT Office Visit Family Practice [facility] [address] [place] [address] Dorina Reina DO [address] [place] [address] 05/02/2024 1:15 PM EDT Imaging Radiology [facility] [address] [place] [address] Health Maintenance Due Date Last Done Comments Depression Screening 1947 Albumin/Creatinine Ratio 1954 DTap/Tdap Vaccines (1 - Tdap) 12/08/1955 Zoster Vaccines (1 of 2) 1986 Pneumococcal Vaccine: 65+ Years (1 of 1 - PCV) 2001 Adult Wellness Visit 2002 COVID-19 Vaccine ( season) 2024 09/07/2023, 09/07/2023, 10/05/2021, Additional history exists Influenza Vaccine (FLU shot) (#1) 2024 05/18/2023, 05/01/2022, 04/29/2021, Additional history exists CKD HGB USE SMARTSET 41032 01/27/202501/27, 01/28/2024, 12/09/2023, Additional history exists CKD PHOS USE SMARTSET 77484 01/27/2025 01/28/2024 DXA Scan 03/14/2034 03/14/2024 HPV (Gardasil) Vaccine Aged Out No lo [...] as of this encounter Visit Diagnoses Diagnosis Urge incontinence of urine- Primary Urge incontinence OAB (overactive bladder) Hypertonicity of bladder Urinary urgency Urgency of urination documented in this encounter Care Teams Lap Maker Relationship Specialty Start Date End Date Dorina Reina DO [address] [place] [address] PCP - General Family Medicine 09/22/23 documented as of this encounter
--- OUTSIDE RECORDS SUMMARY | 2024-08-20 15:28 | External Medical Summary | Summary of Care ---
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 Active [place] 3 1000 MG Oral Capsule Take 2 [...] the morning. 90 Tablet 3 02/01/2024 Active documented as of this encounter (statuses as of 03/09/2024) Active Problems Problem Noted Date Diagnosed Date Memory impairment 10/22/2023 Adjustment disorder with depressed mood 10/22/19 HTN, goal below 140/90 10/22/2023 Dyslipidemia, goal LDL below 70 10/22/2023 Stage 3a chronic kidney disease 10/22/2023 documented as of this encounter (statuses as of 03/09/2024) Resolved Problems Problem Noted Date Diagnosed Date Resolved Date Unspecified dementia, unspec ified severity, without behavioral disturbance, psychotic disturbance, mood disturbance, and anxiety 01/28/2024 01/28/2024 documented as of this encounter (statuses as of 03/09/2024) Social History Tobacco Use Types Packs/Day Years [...] Sign Reading Time Taken Comments Blood Pressure 116/78 02/26/2024 4:10 PM EDT Pulse 76 02/26/2024 4:10 PM EDT Temperature 36.8 C (98.2 F) 02/26/2024 4:10 PM ED T Respiratory Rate 20 02/26/2024 4:10 PM EDT Oxygen Saturation 94% 02/26/2024 4:10 PM EDT Inhaled Oxygen Concentration - - Weight 93.5 kg (206 lb 0.6 oz) 02/26/2024 4:10 P M EDT Height - - Body Mass Index 31.33 10/22/2023 1:03 PM EDT documented in this encounter Progress Notes * Naima Steiner MD - 02/26/2024 4:20 PM EDT Subjective Chief Complaint Patient presents with Acute HPI: Shirley Locke is a 88 year old female. Patient is accompanied by her daughter. The following issues were addressed today: Patient recently had a left total hip arthroplasty on 11/03/23. She then presented on 11/17/23 for a femoral component revision due to a fracture. At rehab was found to have changes in her incision as well as some discharge from the area. She was admitted to [facility] for intramuscular abscess lateral to the greater trochanter as well as another area of soft tissue collection in the femoral neck along the stem of the prosthesis. Patient was taken on 12/06 for orthopedic debridement and revision. Would cultures grew MRSA. She completed 6 weeks of IV antibiotics via PICC line. Here today with c/o redness around hip incision per daughter's observation. Patient states area is just mildly sore. She fell backward yesterday and landed on her bottom. Ableto get back up. No purulent discharge from the incision site. No swelling. Patient denies fever, chills, nausea, vomiting. Review of Systems: See HPI Objective BP 116/78 | Pulse 76 | Temp 36.8 C (98.2 F) (Tympanic) | Resp 20 | Wt 93.5 kg (206 lb 0.6 oz) |LMP (LMP Unknown) | SpO2 94% | BMI 31.33 kg/m | BSA 2.12 m Wt Readings from Last 3 Encounters: 02/26/24 93.5 kg (206 lb 0.6 oz) 01/28/24 93.4 kg (206 lb) 10/22/23 93.4 kg (206 lb) BP Readings from Last 3 Encounters: 02/26/24 116/78 01/28/24 90/52 10/22/23 120/82 General: Well-appearing, no acute distress Skin: Left hip incision is well-healing. Very minimal surrounding erythema. No edema or discharge. Non-tender. Neurological: Alert and oriented Psychiatric: Appropriate mood and affect Assessment & Plan 1. Hip pain, left Incision appears well-healing. Recommended x-ray due to recent history and fall yesterday. X-ray at this time closed, recommended having done tomorrow at . Patient's daughter states she would prefer to monitor her over the weekend. If any worsening pain will take her for x-ray. - XR HIP UNILAT 2-3 VIEWS INCLUDING AP PELVIS 2. S/P total left hip arthroplasty 3. S/p left hip fracture 4. 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 History of MRSA infection Return if symptoms worsen or fail to improve. This note was electronically signed by Naima Steiner MD documented in this encounter Nursing Notes * Maureen Brennan LPN - 02/26/2024 4:07 PM EDT Patient presents in office today with C/O pain and redness on left hip. Had surgery 11/02 then another one. Had MRSA from then. Started to notice some redness 4 days ago this morning it is red along the incision and is not painful a small spot that is bleeding. documented in this encounter Plan of Treatment Upcoming Encounters Date Type Department Care Team (Late st Contact Info) Description 03/14/2024 9:20 AM EDT Office Visit Family Practice [facility] [address] [place] [address] Dorina Hodges DO [address] [place] [address] 03/14/2024 11:00 AM EDT [address] [address] 04/04/2024 12:35 PM EDT [facility] [address] [place] [address] Maribel Mills PA-C [address] [place] [address] Nurse Pietro Monzon [address] [facility] [place] [address] 04/13/2024 3:30 PM EDT [facility] [address] [place] [address] 05/02/2024 1:15 PM EDT [facility] [address] [facility] [place] [address] Scheduled Orders Name Type Priority Associated Diagnoses Orde r Schedule XR HIP UNILAT 2-3 VIEWS INCLUDING AP PELVIS Medical Imaging Routine Hip pain, left Ordered: 02/26/2024 Health Maintenance Due Date Last Done Comments Depression Screening 1948 Albumin/Creatinine Ratio 1954 DTap/Tdap Vaccines (1 - Tdap) 12/08/1955 Zoster Vaccines (1 of 2) 1986 DXA Scan 2001 Pneumococcal Vaccine: 65+ Years (1 of 1 - PCV) 2001 Adult Wellness Visit 2002 COVID-19 Vaccine ( season) 2024 09/07/2023, 10/05/2021, 05/08/2021, Additional history exists Influenza Vaccine (FLU shot) (#1) 2024 05/18/2023, 05/01/2022, 04/29/2021, Additional history exists CKD HGB USE SMARTSET 78253 01/27/202501/27, 01/28/2024, 12/09/2023, Additional history exists CKD PHOS USE SMARTSET 47142 01/27/2025 01/28/2024 HPV (Gardasil) Vaccine Aged Out No lo [...] as of this encounter Visit Diagnoses Diagnosis Hip pain, left- Primary Pain in joint, pelvic region and thigh S/P total left hip arthroplasty S/p left hip fracture 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
[2024-08-20 15:58] LABS: Basophils # (auto) 0.04 K/uL (0.00-0.20); Basophils % (auto) 0.6 %; Eosinophils # (auto) 0.31 K/uL (0.00-0.50); Eosinophils % (auto) 4.4 %; Hematocrit (blood only) 38.8 % (37.0-47.0); Hemoglobin 12.8 g/dl (12.0-16.0); Immature Granulocytes % (auto) 1.4 %; Lymphocytes # (auto) 2.62 K/uL (1.20-3.40); Lymphocytes % (auto) 37.1 %; Mean Corpuscular Hemoglobin 31.7 pg (25.0-34.0); Mean Platelet Volume 9.9 fL (9.4-12.4); Monocytes # (auto) 0.69 K/uL (0.11-0.59); Monocytes % (auto) 9.8 %; Neutrophils # (auto) 3.31 K/uL (1.40-6.50); Neutrophils % (auto) 46.7 %; Platelet Count 233 K/uL (130-400); RDW Coefficient of Variation 15.6 % (11.5-14.5); RDW Standard Deviation 53.3 fL (36.4-46.3); Red Blood Count 4.04 M/uL (4.20-5.40); White Blood Count 7.07 K/ul (4.8-10.8)
--- NOTE | 2024-08-20 15:58 | Electrocardiogram Report ---
Test Reason : Blood Pressure : */* mmHG Vent. Rate : 72 BPM Atrial Rate : * BPM P-R Int : * ms QRS Dur : 106 ms QT Int : 408 ms P-R-T Axes : * -52 59 degrees QTcB Int : 446 ms Normal sinus rhythm Left axis deviation Minimal voltage criteria for LVH, may be normal variant Abnormal ECG Confirmed by Pj Burton ([id number]) on 08/20/2024 3:58:02 PM Referred By: Confirmed By: Pj Burton
--- NOTE | 2024-08-20 16:02 | Emergency Department Note ---
Impression & Plan Chest pain, Elevated brain natriuretic peptide (BNP) level ED Provider Note HISTORY OF PRESENT ILLNESS: Patient is an 88-year-old female presenting with chest pain. Patient reports that she started to have some chest discomfort in the substernal region last night. Reports that she thought it would get better when she woke up, but when she woke up she was still having pain. Reports that pain is in the substernal chest with radiation into the left neck and left shoulder. She states that she had a heart attack a number of years ago but this felt different. She denies any shortness of breath. Denies any lightheadedness or dizziness. Denies any nausea, vomiting or diarrhea. She is not on any anticoagulation. She was given a baby aspirin and nitro with EMS. On arrival to the ER, she reports that her pain is only about a 3 or 4 out of 10. Describes it as a pressure sensation. ROS: as above PHYSICAL EXAM: Constitutional: Patient appears in no acute distress. HENT: Head: Normocephalic and atraumatic. Eyes: EOMI, PERRL Mouth/Throat: Mucous membranes moist. Neck: Trachea midline. Neck supple. Cardiovascular: RRR, No murmurs, rubs or gallops. Intact distal pulses. Pulmonary/Chest: No respiratory distress. Breath sounds clear and equal bilaterally. No wheezes or rales. Abdominal: Abdomen soft, no tenderness, rebound or guarding. Musculoskeletal: No edema, tenderness or deformity noted. Skin: Warm and dry. No rash, erythema, pallor or cyanosis Psychiatric: Appropriate mood and affect for situation. Neurological: Alert and keenly responsive. CN II-XII grossly intact, moving all extremities equally and fully. MDM: - Vitals signs showed hypertension - History obtained via patient. History as above. - Chronic conditions affecting care: HTN; HLD; CKD - Differential diagnoses include, but are not limited to: Acute coronary syndrome; pulmonary embolism; dissection; tension pneumothorax; esophageal rupture; pneumonia - Order placed for continuous cardiac monitoring. At this time, monitor showed rate of 70 bpm with normal sinus rhythm, per my interpretation. - External medical records reviewed. Discharge summary dated 12/05/2023 was reviewed. Patient was admitted for left hip surgical site infection. - EKG image interpreted by myself showed normal sinus rhythm. Rate 72 bpm. QT 408. No acute ischemic changes. - Laboratory workup interpreted by myself showed normal WBC; normal PT/INR; normal troponin; elevated BNP (164) - CXR image interpreted by myself was negative for any pneumonia, per my interpretation. Noted to have a left lateral lung base opacification concerning for small effusion, per radiology. - Repeat troponin within normal limits - Moderate HEART score based on age and risk factors. - Discussion was had with nurse case manager about patient's case and need for admission - Hospitalist, Dr. York, consulted for admission - Patient admitted to [facility] Hospitalist service for further evaluation and management. ASSESSMENT AND PLAN: Diagnosis: Chest pain; elevated BNP Plan: Admit Past Med/Surg History Problem List (Updated 08/20/24 @ 20:16 by Livia Durant MD) Elevated brain natriuretic peptide (BNP) level (Acute) Chest pain (Acute) Infection of prosthetic total hip joint Dyslipidemia HTN (hypertension) Memory impairment (Acute) Wound drainage S/P total left hip arthroplasty (Acute) Abscess after procedure (Acute) Medical History Adjustment disorder with depressed mood CKD (chronic kidney disease), stage III Surgical History History of total left hip arthroplasty Social History Smoking Status: Never smoker Hx Alcohol Use: No Hx Substance Use: No Preferred Language: [employer] [employer] Manager Required: No Beliefs That Will Affect Care: None Current Living Situation: Personal Care Facility Current Living Situation Comment: pt states she rents out basement at a friends apartment, pt not good hx Feels Safe at Home: Yes Assistive Devices: Glasses, Hearing Aid - Bilateral and Hospital Bed Allergies Allergies Allergy/AdvReac Type Severity Reaction Status Date / Time atenolol Allergy Unknown ON THE Verified 12/04/23 15:55 [facility] quinidine Allergy Unknown ON THE Verified 12/04/23 15:55 [facility] Home Meds Home Medications Medication Instructions Recorded Confirmed simvastatin 10 mg tablet 10 mg PO HS 11/13/23 08/20/24 cholecalciferol (vitamin D3) 25 25 mcg PO DAILY 12/04/23 08/20/24 mcg (1,000 unit) capsule (Vitamin D3) donepezil 5 mg tablet (Aricept) 5 mg PO HS 12/04/23 08/20/24 multivitamin 1 tab PO HS 12/04/23 08/20/24 omega-3 fatty acids 1,000 mg 2,000 mg PO DAILY 12/04/23 08/20/24 capsule aspirin 81 mg chewable tablet 81 mg PO DAILY 08/20/24 08/20/24 ginkgo biloba 40 mg tablet 120 mg PO DAILY 08/20/24 08/20/24 metoprolol succinate 25 mg 25 mg PO QAM 08/20/24 08/20/24 tablet,extended release 24 hr Results & Data (ED) Vital Signs Vital Signs - 24 hr 08/20/24 15:34 08/20/24 16:00 08/20/24 16:00 Temperature 36.4 C L Temperature Source Oral Pulse Rate 72 63 Pulse Rate [Apical] Pulse Rate from SpO2 Sensor Respiratory Rate 15 Respiratory Effort / Characteristics Non-Labored Spontaneous Respiratory Depth Normal Respiratory Pattern Regular Blood Pressure 145/62 H 139/72 Blood Pressure [Right Arm] Blood Pressure Mean 89 80 Blood Pressure Mean [Right Arm] Pulse Oximetry 91 Oxygen Delivery Method Room Air Sepsis Recent Fever Within 48 Hours No Sepsis New/Unexplained Change in Mental Status N/A Sepsis Action Taken by Nursing No Action Required 08/20/24 16:05 08/20/24 16:30 08/20/24 16:32 Temperature Temperature Source Pulse Rate 65 64 Pulse Rate [Apical] Pulse Rate from SpO2 Sensor 65 64 Respiratory Rate 17 15 Respiratory Effort / Characteristics Respiratory Depth Respiratory Pattern Blood Pressure 132/77 Blood Pressure [Right Arm] Blood Pressure Mean 93 Blood Pressure Mean [Right Arm] Pulse Oximetry 92 95 Oxygen Delivery Method Sepsis Recent Fever Within 48 Hours Sepsis New/Unexplained Change in Mental Status Sepsis Action Taken by Nursing 08/20/24 16:59 08/20/24 17:00 08/20/24 17:02 Temperature Temperature Source Pulse Rate 63 66 Pulse Rate [Apical] Pulse Rate from SpO2 Sensor 63 64 Respiratory Rate 17 20 Respiratory Effort / Characteristics Respiratory Depth Respiratory Pattern Blood Pressure 126/70 Blood Pressure [Right Arm] Blood Pressure Mean 87 Blood Pressure Mean [Right Arm] Pulse Oximetry 94 93 Oxygen Delivery Method Sepsis Recent Fever Within 48 Hours Sepsis New/Unexplained Change in Mental Status Sepsis Action Taken by Nursing 08/20/24 18:02 08/20/24 18:30 08/20/24 18:45 Temperature Temperature Source Pulse Rate 65 64 Pulse Rate [Apical] Pulse Rate from SpO2 Sensor 66 65 Respiratory Rate 13 18 Respiratory Effort / Characteristics Respiratory Depth Respiratory Pattern Blood Pressure 146/82 H 152/83 H Blood Pressure [Right Arm] Blood Pressure Mean 103 106 Blood Pressure Mean [Right Arm] Pulse Oximetry 94 95 Oxygen Delivery Method Room Air Sepsis Recent Fever Within 48 Hours Sepsis New/Unexplained Change in Mental Status Sepsis Action Taken by Nursing 08/20/24 18:48 08/20/24 19:10 08/20/24 20:00 Temperature Temperature Source Pulse Rate 68 Pulse Rate [Apical] 69 71 Pulse Rate from SpO2 Sensor Respiratory Rate 18 22 Respiratory Effort / Characteristics Non-Labored Spontaneous Non-Labored Spontaneous Respiratory Depth Respiratory Pattern Regular Blood Pressure Blood Pressure [Right Arm] 141/77 H 156/89 H Blood Pressure Mean Blood Pressure Mean [Right Arm] 98 111 Pulse Oximetry 95 96 96 Oxygen Delivery Method Room Air Room Air Room Air Sepsis Recent Fever Within 48 Hours Sepsis New/Unexplained Change in Mental Status Sepsis Action Taken by Nursing Laboratory Data 08/20/24 15:37 08/20/24 15:37 Lab Results 08/20/24 08/20/24 08/20/24 Range/Units 15:37 16:02 17:32 WBC 7.07 (4.8-10.8) K/ul RBC 4.04 L (4.20-5.40) M/uL Hgb 12.8 (12.0-16.0) g/dl Hct 38.8 (37.0-47.0) % MCV 96.0 (80.0-100.0) fL MCH 31.7 (25.0-34.0) pg MCHC 33.0 (32.0-36.0) g/dL RDW Std Deviation 53.3 H (36.4-46.3) fL RDW Coeff of Dimitrios 15.6 H (11.5-14.5) % Plt Count 233 (130-400) K/uL MPV 9.9 (9.4-12.4) fL Immature Gran % (Auto) 1.4 % Neut % (Auto) 46.7 % Lymph % (Auto) 37.1 % Hidalgo % (Auto) 9.8 % Eos % (Auto) 4.4 % Baso % (Auto) 0.6 % Neut # (Auto) 3.31 (1.40-6.50) K/uL Lymph # (Auto) 2.62 (1.20-3.40) K/uL Hidalgo # (Auto) 0.69 H (0.11-0.59) K/uL Eos # (Auto) 0.31 (0.00-0.50) K/uL Baso # (Auto) 0.04 (0.00-0.20) K/uL Immature Gran # (Auto) 0.10 (0.01-0.20) K/uL PT 11.4 (9.0-12.0) Seconds INR 1.1 (0.9-1.1) APTT 26 (21-31) Seconds PTT Ratio 1.0 Sodium 142 (136-145) mmol/L Potassium 3.9 (3.5-5.1) mmol/L Chloride 108 H (98-107) mmol/L Carbon Dioxide 29 (21-32) mmol/L Anion Gap 5 (3-11) BUN 17 (6-23) mg/dl Creatinine 0.83 (0.6-1.2) mg/dl Est Cr Clr Drug Dosing 62.8 ml/min eGFR 68.19 BUN/Creatinine Ratio 20.5 H (10-20) Glucose 96 (70-99(Fasting)) mg/dl Calcium 8.6 (8.6-10.3) mg/dl Magnesium 1.9 (1.7-2.4) mg/dl Total Bilirubin 0.4 (0.2-1.0) mg/dl AST 23 (13-39) U/L ALT 16 (7-52) U/L Alkaline Phosphatase 76 (34-104) U/L Troponin I High Sens 5.9 5.8 (0-14) pg/ml B-Natriuretic Peptide 164 H (0-100) pg/ml Total Protein 6.1 (6.0-8.3) gm/dl Albumin 3.7 (3.4-5.0) gm/dl Globulin 2.4 L (2.5-4.0) gm/dl Albumin/Globulin Ratio 1.5 (0.9-2) Imaging Data Radiologist's Impression: Chest X-Ray 08/20/24 15:32 HISTORY: Chest pain. TECHNIQUE: Portable AP radiographs of the chest. COMPARISON: None FINDINGS: Mild left lateral lung base opacity. The lungs are otherwise clear.No pneumothorax. No right pleural effusion. Top normal heart size. Left-sided aortic arch. Midline trachea. No acute osseous abnormality. Left axillary surgical clips. Included upper abdomen is unremarkable. IMPRESSION: 1. Left lateral lung base opacification and blunting of the costophrenic angle. This could represent sequelae of atelectasis, pleural thickening, and/or small effusion. 2. Clear left lung. 3. Normal heart size. Electronically signed by Loco Akbar 08-20-2024 4:02 PM Discharge Plan Visit Data Chief Complaint: Chest Pain Stated Complaint: CHEST PAIN ED Provider: Livia Durant Discharge Problem: Chest pain, Elevated brain natriuretic peptide (BNP) level Forms Stand Alone Forms: My [facility] [place] [employer] Prescriptions Prescriptions: No Action simvastatin 10 mg tablet 10 mg PO HS multivitamin Tablet 1 tab PO HS donepezil [Aricept] 5 mg Tablet 5 mg PO HS omega-3 fatty acids 1,000 mg Capsule 2,000 mg PO DAILY cholecalciferol (vitamin D3) [Vitamin D3] 25 mcg (1,000 unit) Capsule 25 mcg PO DAILY ginkgo biloba [Ginkoba] 40 mg Tablet 120 mg PO DAILY Rx Instructions: give with meal/snack aspirin 81 mg Tablet,Chewable 81 mg PO DAILY metoprolol succinate 25 mg tablet extended release 24 hr 25 mg PO QAM Rx Instructions: pt is supposed to take 2 tabs a day, but her med list says she takes 1 a day. Referrals Referrals: Dorina Hodges DO [Primary Care Provider] -
[2024-08-20 16:10] LABS: INR 1.1 (0.9-1.1); Partial Thromboplastin Time 26 Seconds (21-31); Prothrombin Time 11.4 Seconds (9.0-12.0)
[2024-08-20 16:24] LABS: Albumin Level 3.7 gm/dl (3.4-5.0); Bilirubin,Total 0.4 mg/dl (0.2-1.0); Calcium 8.6 mg/dl (8.6-10.3); Potassium 3.9 mmol/L (3.5-5.1)
[2024-08-20 16:30] LABS: Albumin Globulin Ratio 1.5 (0.9-2); BUN Creatinine Ratio 20.5 (10-20); Creatinine Clr Calc Pharmacy 62.8 ml/min; Globulin 2.4 gm/dl (2.5-4.0); Total Protein 6.1 gm/dl (6.0-8.3)
[2024-08-20 16:33] LABS: Troponin I High Sensitivity 5.9 pg/ml (0-14)
[2024-08-20 18:34] LABS: Troponin I High Sensitivity 5.8 pg/ml (0-14)
[2024-08-20 18:46] LABS: Magnesium 1.9 mg/dl (1.7-2.4)
[2024-08-20] MEDS ORDERED: ALUMINUM/MAGNESIUM SUSP 30 ML UDC PO PRN (20:13)
[2024-08-20] MEDS ORDERED: MAGNESIUM HYDROXIDE SUSP 30 ML UDC PO PRN (20:13)
[2024-08-20] MEDS ORDERED: ACETAMINOPHEN 325 MG TAB PO PRN (20:13)
[2024-08-20] MEDS ORDERED: ONDANSETRON INJ 2 MG/ML 2 ML VIAL IV PRN (20:13)
[2024-08-20] MEDS ORDERED: NITROGLYCERIN SL 0.4 MG/TAB TAB SL PRN (20:27)
--- NOTE | 2024-08-20 20:28 | History & Physical Report ---
Date of Service August 20, 2024 Assessment & Plan (1) Chest pain: Plan Chest pain rule out ACS Patient comes in with pain across the chest, 4/10 in intensity, radiating to left arm, on and off for 3 days. relieved w/ aspirin and nitro Troponin x 2 negative, trend further troponin. EKG with no acute ST or T changes. Will get echo, cardiology consult. Telemetry monitoring. Likely exacerbation of diastolic CHF: Patient is not taking Lasix due to frequent accidents for a while now. April 2024 echo with EF of 60 to 64%, grade 2 diastolic dysfunction. CXR w/ likely left pleural effusion. Will give her 20 Mg IV Lasix for now, daily 20 Mg IV Lasix. Cardiology consult. Monitor replete electrolytes. Monitor renal function. Monitor I's and O's. Other chronic medical conditions: HTN, HLD, memory impairment -- continue with/resume home meds as when able. DVT prophylaxis: Heparin subcu DNI/DNI History of Present Illness Chief Complaint: chest pain Primary Care Provider: Dorina Hodges DO 88-year-old lady with PMH of diastolic heart failure, HLD, HTN, CKD stage IIIa, breast cancer s/p bilateral mastectomy, memory impairment, adjustment disorder with depressed mood presented to the ED with complaint of chest pain on and off for last 3 days. Patient does not very much remember her symptoms but patient's daughter Marleen was at bedside who helped with history taking. Patient has this pain across the chest, on and off for about 3 days, dull in nature, 4/10 in intensity when it is present, it was generally lasting for about 10 minutes before resolving on its own but it did not improve on its own today prompting them to come to the emergency. The discomfort/pain was radiating to left arm. The pain was relieved w/ nitro and aspirin per d/w ED physician. Patient denies shortness of breath/palpitations/belly pain. Per daughter, no fever/cough/vomiting/acute changes in appetite or bowel habits. Patient denies pain and burning with passing urine/sore throat and nausea. patient generally uses walker at baseline. Per daughter, patient does not use tobacco or alcohol. Medications reviewed with patient's daughter at bedside. DNR/DNI as per my discussion with Marleen. Plan of care discussed with patient and her daughter at bedside in detail, they voiced understanding. Allergies Allergy/AdvReac Type Severity Reaction Status Date / Time atenolol Allergy Unknown ON THE Verified 12/04/23 15:55 [facility] quinidine Allergy Unknown ON THE Verified 12/04/23 15:55 [facility] Home Medications Medication Instructions Recorded Confirmed Type simvastatin 10 mg tablet 10 mg PO HS 11/13/23 08/20/24 History cholecalciferol (vitamin D3) 25 25 mcg PO DAILY 12/04/23 08/20/24 History mcg (1,000 unit) capsule (Vitamin D3) donepezil 5 mg tablet (Aricept) 5 mg PO HS 12/04/23 08/20/24 History multivitamin 1 tab PO HS 12/04/23 08/20/24 History omega-3 fatty acids 1,000 mg 2,000 mg PO DAILY 12/04/23 08/20/24 History capsule aspirin 81 mg chewable tablet 81 mg PO DAILY 08/20/24 08/20/24 History ginkgo biloba 40 mg tablet 120 mg PO DAILY 08/20/24 08/20/24 History metoprolol succinate 25 mg 25 mg PO QAM 08/20/24 08/20/24 History tablet,extended release 24 hr Past Med/Surg History Problem List (Updated 08/20/24 @ 20:16 by Livia Durant MD) Elevated brain natriuretic peptide (BNP) level (Acute) Chest pain (Acute) Infection of prosthetic total hip joint Dyslipidemia HTN (hypertension) Memory impairment (Acute) Wound drainage S/P total left hip arthroplasty (Acute) Abscess after procedure (Acute) Medical History Adjustment disorder with depressed mood CKD (chronic kidney disease), stage III Surgical History History of total left hip arthroplasty Social History Smoking Status: Never smoker Hx Alcohol Use: No Hx Substance Use: No Preferred Language: [place]olan [employer] Tool Required: No Beliefs That Will Affect Care: None Current Living Situation: Personal Care Facility Current Living Situation Comment: pt states she rents out basement at a friends apartment, pt not good hx Feels Safe at Home: Yes Assistive Devices: Glasses, Hearing Aid - Bilateral and Hospital Bed Review of Systems Review of Systems: Negative otherwise mentioned in HPI. Physical Exam Physical Exam: GENERAL: Alert and oriented x3. NAD, on RA. HEENT: No pallor, no icterus. Pupils equal, round and reactive to light. Oral mucosa moist. NECK: No JVD, no neck masses. HEART: S1 and S2 heard. Regular rate and rhythm. No murmur, no gallop. RESPIRATORY SYSTEM: Normal AP diameter. No accessory muscle use. No wheezing, no crackles. ABDOMEN: Soft, bowel sounds present, nontender, no distention. CENTRAL NERVOUS SYSTEM: No facial droop. Speech is clear. Obeys simple commands. Moves extremities. EXTREMITIES: 2-3+ ble edema, no erythema seen. Results & Data Results & Data Vital Signs (Past 12 Hours) Vital Signs Temp Pulse Pulse Resp BP BP Pulse Ox 08/20/24 20:00 71 22 156/89 H 96 08/20/24 19:10 69 141/77 H 96 08/20/24 18:48 68 18 95 08/20/24 18:45 08/20/24 18:30 64 18 152/83 H 95 08/20/24 18:02 65 13 146/82 H 94 08/20/24 17:02 66 20 93 08/20/24 17:00 126/70 08/20/24 16:59 63 17 94 08/20/24 16:32 64 15 95 08/20/24 16:30 132/77 08/20/24 16:05 65 17 92 08/20/24 16:00 139/72 08/20/24 16:00 63 08/20/24 15:34 36.4 C L 72 15 145/62 H 91 O2 Del Method 08/20/24 20:00 Room Air 08/20/24 19:10 Room Air 08/20/24 18:48 Room Air 08/20/24 18:45 Room Air 08/20/24 18:30 08/20/24 18:02 08/20/24 17:02 08/20/24 17:00 08/20/24 16:59 08/20/24 16:32 08/20/24 16:30 08/20/24 16:05 08/20/24 16:00 08/20/24 16:00 08/20/24 15:34 Room Air
[2024-08-20] MEDS: HEPARIN SOD 5,000 UNIT/0.5 ML VIAL SQ SCH (21:28)
[2024-08-20] MEDS: FUROSEMIDE INJ 20 MG/2 ML VIAL IV ONE (21:28)
[2024-08-20 22:28] LABS: Appearance Urine Cloudy (Clear); Bacteria Urine Automated 4+ (None Seen); Bilirubin Urine Negative (Negative); Blood Urine Negative (Negative); Calcium Oxalate Crystals Urine Present (None Prsent); Cast Urine Automated 0-2 /lpf (0-2); Color Urine Yellow; Glucose Urine UA Negative (Negative); Ketones Urine Trace (Negative); Leukocyte Esterase Urine 1+ (Negative); Nitrite Urine Positive (Negative); Protein Urine Trace (Negative); RBC Urine Automated 0-2 /hpf (0-2); Specific Gravity Urine 1.023 (1.000-1.030); Urobilinogen Urine Negative (Negative); WBC Urine Automated >50 /hpf (0-5); pH Urine 5.5 (4.5-7.5)
[2024-08-20] MEDS: SIMVASTATIN 10 MG TAB PO SCH (22:57)
[2024-08-20] MEDS: DONEPEZIL HCL 5 MG TAB PO SCH (22:57)
[2024-08-20] MEDS: MULTIVITAMIN TAB PO SCH (22:57)
[2024-08-20] MEDS: cefTRIAXone SODIUM 2,000 MG/50 ML BAG IV STA (22:57)
[2024-08-21 06:11] LABS: Hematocrit (blood only) 38.4 % (37.0-47.0); Hemoglobin 12.8 g/dl (12.0-16.0); Mean Corpuscular Hemoglobin 31.8 pg (25.0-34.0); Mean Corpuscular Hgb Conc 33.3 g/dL (32.0-36.0); Mean Corpuscular Volume 95.3 fL (80.0-100.0); Mean Platelet Volume 9.8 fL (9.4-12.4); Platelet Count 216 K/uL (130-400); RDW Coefficient of Variation 15.4 % (11.5-14.5); RDW Standard Deviation 52.9 fL (36.4-46.3); Red Blood Count 4.03 M/uL (4.20-5.40); White Blood Count 7.33 K/ul (4.8-10.8)
[2024-08-21 06:45] LABS: BUN Creatinine Ratio 19.8 (10-20); Calcium 8.7 mg/dl (8.6-10.3); Creatinine Clr Calc Pharmacy 60.4 ml/min; Magnesium 1.8 mg/dl (1.7-2.4); Phosphorus 3.8 mg/dl (2.5-4.9); Potassium 3.8 mmol/L (3.5-5.1)
[2024-08-21 06:52] LABS: Troponin I High Sensitivity 6.4 pg/ml (0-14)
[2024-08-21] MEDS: ASPIRIN 81 MG CHEW PO SCH (07:47)
[2024-08-21] MEDS: OMEGA-3 (PURIFIED FISH OIL) 1 GM CAP PO SCH (07:48)
[2024-08-21] MEDS: METOPROLOL SUCC 25MG EXT REL TAB PO SCH (07:48)
[2024-08-21] MEDS: CHOLECALCIFEROL 25 MCG (1000 UNITS) TAB PO SCH (07:48)
[2024-08-21] MEDS: FUROSEMIDE INJ 20 MG/2 ML VIAL IV SCH (07:54)
--- NOTE | 2024-08-21 08:23 | Cardiology Consultation ---
Date of Consultation August 21, 2024 Assessment & Plan (1) Acute on chronic diastolic HF (heart failure): (2) Chest pain: (3) Acute UTI (urinary tract infection): (4) Memory impairment: (5) HTN (hypertension): (6) Dyslipidemia: Plan Assessment: 88 year old female with memory impairment presents with 3 days of persistent chest heaviness, and significant lower extremity edema, known CHF noncompliant on her diuretic therapies. Plan: 1. Acute on Chronic diastolic heart failure 2. Chest pain -Patient reports that she does not follow with a dental intern -She has not been taking her Lasix due to having "accidents" -Unable to tell me what her diet has been. -Patient receiving IV lasix 20mg Daily and is diuresing well. Chest discomfort has resolved making it likely it was s/t HF. Assess volume status in AM -Strict I and O and daily weights. Close monitoring of renal function (hx of CKD), and serum electrolytes. Goal serum K > 4.0 and serum Mag > 2.0 -Echocardiogram pending to asses overall structure, and function -EKG with no acute changes. -Troponin negative x4. -Continue Toprol xl. 3. Acute UTI -as per management of primary team. 4. Memory impairment -Attempt to obtain better history from family 5. HTN -Slightly above target. -Continue toprol xl and Furosemide at this time. Hesitant to start [place]-I/ARB s/t stage III CKD. If pressures would trend up, may consider addition of amlodipine 6. Dyslipidemia -Continue Simvastatin Case has been discussed with Dr. Benz. Further recommendations regarding plan of care as per his assessment. I spent a total of 40 minutes on the date of service in preparation, delivery, documentation of the care provided to the patient excluding any time spent in the performance of separately billed services. ERICKA [facility] Supervising Physician Co-Signing Physician Notes Attending attestation: Case reviewed with the advanced practitioner. I have personally performed a history and physical examination on the patient. I have reviewed the advanced practitioner's documentation on the date of service referenced in note, and I agree with, and take responsibility for the plan of care. Subjective: Denies additional chest discomfort Exam: Cardiovascular regular rhythm, no murmurs, 1+ bilateral lower extreme edema Data: Telemetry reveals sinus rhythm in the 80s to 90s EKG performed 08/20/2024 at 1528: Sinus rhythm at 72 bpm, no significant repolarization abnormalities. Echocardiogram performed 08/21/2024 and interpret independently: Grade 2 diastolic dysfunction. No regional wall motion abnormality, LVEF in the range of 55 to 60% High sensitive troponin negative x 4 measurements. Impression/ Plan: Acute decompensation of heart failure with preserved ejection fraction --Agree with IV furosemide 20 mg IV daily. She does not however appear significantly volume overloaded and perhaps can discontinue IV diuretics after tomorrow. --Agree with antibiotic therapy for suspected UTI. --Subcutaneous heparin for DVT prophylaxis. I spent a total of 20 minutes coordinating, documenting, and providing care for this patient excluding time spent in the performance of separately billed services or time spent by another provider. Sd Benz DO History of Present Illness Reason for Consultation: Acute on chronic HF, chest pain Requesting Physician: Ulisses mccabeist Attending Physician: Juan David Dickens MD History of Present Illness HPI: Patient is an 88 year old female with pMHx significant for HFpEF, HTN, HLD, CKD stage IIIa, prior breast cancer s/p bilateral mastectomy, memory impairment and mood disorder that presents to the ER with complaints of intermittent chest pain x3 days. Patient was not able to recall many of her symptoms. She states that she had persistent chest "heaviness" for about 3 days, not worse with exertion, "just there". Patient is unable to provide many details due to her cognitive impairment, and told her family member on the phone that she is being held at a long term. Per review of Records it appears patient has not been taking her Lasix for a while now due to "frequent accidents". When asked, initially she states that she is taking her meds, then reports that she skips doses on the days she has other appointments, which eventually led to her being unsure when she took them. Her legs are found to be quite edematous; however, patient states that its been like that for awhile, but a lot worse this past week. Denies increased salt or fluid intake, but was not able to tell me what all she is eating. EKG on admission: NSR rate 72bpm No acute ST or T wave abnormalities Chest xray: IMPRESSION: 1. Left lateral lung base opacification and blunting of the costophrenic angle. This could represent sequelae of atelectasis, pleural thickening, and/or small effusion. 2. Clear left lung. 3. Normal heart size. BNP with mild elevation High sensitivity troponin negative x4 For Echocardiogram today UA abnormal, culture pending -1330ml fluid balance Review of telemetry shows SR 70-90's with occasional PACs. Allergies Allergy/AdvReac Type Severity Reaction Status Date / Time atenolol Allergy Unknown ON THE Verified 12/04/23 15:55 [facility] quinidine Allergy Unknown ON THE Verified 12/04/23 15:55 [facility] Home Medications Medication Instructions Recorded Confirmed Type simvastatin 10 mg tablet 10 mg PO HS 11/13/23 08/20/24 History cholecalciferol (vitamin D3) 25 25 mcg PO DAILY 12/04/23 08/20/24 History mcg (1,000 unit) capsule (Vitamin D3) donepezil 5 mg tablet (Aricept) 5 mg PO HS 12/04/23 08/20/24 History multivitamin 1 tab PO HS 12/04/23 08/20/24 History omega-3 fatty acids 1,000 mg 2,000 mg PO DAILY 12/04/23 08/20/24 History capsule aspirin 81 mg chewable tablet 81 mg PO DAILY 08/20/24 08/20/24 History ginkgo biloba 40 mg tablet 120 mg PO DAILY 08/20/24 08/20/24 History metoprolol succinate 25 mg 25 mg PO QAM 08/20/24 08/20/24 History tablet,extended release 24 hr Patient History Medical History Adjustment disorder with depressed mood CKD (chronic kidney disease), stage III Surgical History History of total left hip arthroplasty Social History Smoking Status: Never smoker Second Hand Exposure: No; Do You Dip or Chew Tobacco: No; Tobacco Cessation Education Requested by Patient: No Hx Alcohol Use: No Hx Substance Use: No Preferred Language: [place] Communication Ability: Effective Medical Case Worker Required: No Beliefs That Will Affect Care: None Current Living Situation: Personal Care Facility Current Living Situation Comment: pt states she rents out basement at a friends apartment, pt not good hx Other Information That Helps Us Care for You: No Feels Safe at Home: Yes Safety Concerns: Feels Safe At This Time Assistive Devices: Glasses, Hearing Aid - Bilateral and Walker Review of Systems Review of Systems: All systems reviewed & are unremarkable except as noted in HPI & below limited details due to cognitive status Physical Exam Constitutional: + obese; no acute distress Neck: normal visual inspection and trachea midline Respiratory: normal respiratory effort; no respiratory distress, no labored breathing and no cough Cardiovascular: Rate/Rhythm: regular rate and regular rhythm Heart Sounds: normal S1 and normal S2; no murmur Vessels: dorsalis pedis pulses present; no JVD Extremities: + edema (+2 BLE) Skin: + erythema (noted on bilateral Lower ext remities ) Psychiatric: Orientation: alert, oriented to person and cooperative Results & Data Vital Signs (Past 12 Hours) Vital Signs Temp Pulse Pulse Resp BP BP Pulse Ox 08/21/24 07:45 71 15 167/85 H 95 08/21/24 07:31 73 08/21/24 04:30 72 14 138/77 97 08/21/24 02:30 72 18 147/78 H 94 08/21/24 01:34 08/21/24 01:30 72 16 149/86 H 91 08/21/24 01:30 70 18 149/86 H 92 08/21/24 01:00 74 18 151/83 H 92 08/21/24 00:30 73 17 158/86 H 93 08/21/24 00:00 68 16 151/79 H 92 08/20/24 23:48 36.8 C 70 22 158/82 H 93 08/20/24 23:44 70 08/20/24 23:16 69 18 143/77 H 92 08/20/24 22:30 72 19 147/77 H 94 08/20/24 22:00 71 18 162/79 H 91 08/20/24 21:31 78 22 148/71 H 94 08/20/24 21:17 73 20 157/78 H 93 Pulse Ox O2 Del Method O2 Del Method O2 Flow Rate 08/21/24 07:45 Nasal Cannula 2 08/21/24 07:31 08/21/24 04:30 Nasal Cannula 2 08/21/24 02:30 Room Air 08/21/24 01:34 92 Room Air 08/21/24 01:30 Room Air 08/21/24 01:30 Room Air 08/21/24 01:00 Room Air 08/21/24 00:30 Room Air 08/21/24 00:00 Room Air 08/20/24 23:48 Room Air 08/20/24 23:44 08/20/24 23:16 Room Air 08/20/24 22:30 Room Air 08/20/24 22:00 Room Air 08/20/24 21:31 Room Air 08/20/24 21:17 Room Air Laboratory Results Cardiac Enzymes 08/20/24 08/20/24 08/20/24 Range/Units 15:37 16:02 17:32 AST 23 (13-39) U/L Troponin I High Sens 5.9 5.8 (0-14) pg/ml B-Natriuretic Peptide 164 H (0-100) pg/ml 08/20/24 08/21/24 Range/Units 23:26 05:55 AST (13-39) U/L Troponin I High Sens 8.8 6.4 (0-14) pg/ml B-Natriuretic Peptide (0-100) pg/ml Coagulation 08/20/24 08/20/24 Range/Units 15:37 16:02 PT 11.4 (9.0-12.0) Seconds APTT 26 (21-31) Seconds B-Natriuretic Peptide 164 H (0-100) pg/ml CBC 08/20/24 08/21/24 Range/Units 15:37 05:55 WBC 7.07 7.33 (4.8-10.8) K/ul RBC 4.04 L 4.03 L (4.20-5.40) M/uL Hgb 12.8 12.8 (12.0-16.0) g/dl Hct 38.8 38.4 (37.0-47.0) % Plt Count 233 216 (130-400) K/uL Neut # (Auto) 3.31 (1.40-6.50) K/uL Lymph # (Auto) 2.62 (1.20-3.40) K/uL [place] # (Auto) 0.69 H (0.11-0.59) K/uL Eos # (Auto) 0.31 (0.00-0.50) K/uL Baso # (Auto) 0.04 (0.00-0.20) K/uL Comprehensive Metabolic Panel 08/20/24 08/21/24 Range/Units 15:37 05:55 Sodium 142 143 (136-145) mmol/L Potassium 3.9 3.8 (3.5-5.1) mmol/L Chloride 108 H 107 (98-107) mmol/L Carbon Dioxide 29 29 (21-32) mmol/L BUN 17 17 (6-23) mg/dl Creatinine 0.83 0.86 (0.6-1.2) mg/dl Glucose 96 86 (70-99(Fasting)) mg/dl Calcium 8.6 8.7 (8.6-10.3) mg/dl AST 23 (13-39) U/L ALT 16 (7-52) U/L Alkaline Phosphatase 76 (34-104) U/L Total Protein 6.1 (6.0-8.3) gm/dl Albumin 3.7 (3.4-5.0) gm/dl Intake and Output 08/20/24 08/21/24 08/21/24 22:59 06:59 14:59 Intake Total 120 / 170 50 / 170 Output Total 600 / 1500 900 / 1500 200 / 200 Balance -480 / -1330 -850 / -1330 -200 / -200 Intake: IV 50 / 50 cefTRIAXone SODIUM 2,000 mg In 50 / 50 50 ml @ 100 mls/hr IV NOW STA Rx#:[id number] Oral 120 / 120 0 / 120 Output: Urine 600 / 1500 900 / 1500 200 / 200 Other: # Unmeasured Voids 700 Weight 109 kg 108.4 kg Weight Measurement Method Chair Scale Built in [facility] (5) HTN (hypertension) Hypertension type: unspecified Qualified Code(s): I10 - Essential (primary) hypertension
--- NOTE | 2024-08-21 17:00 | Hospitalist Progress Note ---
Date of Service August 21, 2024 Assessment & Plan (1) Chest pain: Plan Chest pain rule out ACS --CXR: Left lateral lung base opacification and blunting of the costophrenic angle. This could represent sequelae of atelectasis, pleural thickening, and/or small effusion. Clear left lung. Normal heart size. Patient comes in with pain across the chest, 4/10 in intensity, radiating to left arm, on and off for 3 days. relieved w/ aspirin and nitro --Troponin x 2 negative, trend further troponin. --ECHO: Mild concentric LVH. Left ventricle wall motion normal. EF 55 to 60%. Grade 2 diastolic dysfunction. Right ventricle is normal in size and function. Pulmonary systolic pressure is 44 mmHg --Chest pain likely noncardiac Continue aspirin, statin, metoprolol Appreciate cardiology input Likely exacerbation of diastolic CHF: Patient is not taking Lasix due to frequent accidents for a while now. BNP 164 Echo as above Continue IV Lasix Monitor I's and O's, daily weight, volume status Cardiology on board Suspected UTI Started on Rocephin empirically Follow cultures Other chronic medical conditions: HTN, HLD, memory impairment -- continue with/resume home meds as when able. DVT Px: Heparin SQ Code Status DNI/DNI Disposition PT OT prior to discharge Admission and Anticipated Discharge Date Admission Date: August 20, 2024 Subjective Patient is seen and examined at bedside Chest pain resolved Offers no new complaints today Denies any dyspnea, nausea, vomiting, abdominal pain Review of Systems Review of Systems: All systems reviewed & are unremarkable except as noted in Subjective Physical Exam Physical Exam: Physical Exam: Vitals signs as noted above General Appearance:Obese, no apparent distress Head: normocephalic, Atraumatic Eyes: normal inspection, EOMI Neck: supple, Trachea midline Respiratory/Chest: Normal breath sounds, CTA, No accessory muscle use Cardiovascular: S1, S2, No murmur Abdomen/GI:Soft, Non tender, Bowel sounds present Extremities/Musculoskeletal:normal inspection, 2+edema Neurologic/Psych:AAOX3, grossly no focal neurological deficits Skin: normal color, warm Results & Data Results & Data Vital Signs (Past 12 Hours) Vital Signs Temp Pulse Pulse Resp BP Pulse Ox Pulse Ox 08/21/24 16:13 77 08/21/24 14:52 36.4 C 80 18 147/89 H 94 08/21/24 12:00 70 18 147/83 H 94 08/21/24 12:00 94 08/21/24 09:49 70 15 145/107 H 94 08/21/24 07:45 71 15 167/85 H 95 08/21/24 07:31 73 O2 Del Method O2 Del Method O2 Flow Rate 08/21/24 16:13 08/21/24 14:52 Room Air 08/21/24 12:00 Room Air 08/21/24 12:00 Room Air 08/21/24 09:49 Room Air 08/21/24 07:45 Nasal Cannula 2 08/21/24 07:31 Laboratory Results Short CBC 08/21/24 Range/Units 05:55 WBC 7.33 (4.8-10.8) K/ul Hgb 12.8 (12.0-16.0) g/dl Hct 38.4 (37.0-47.0) % Plt Count 216 (130-400) K/uL BMP 08/21/24 05:55 Sodium 143 Potassium 3.8 Chloride 107 Carbon Dioxide 29 BUN 17 Creatinine 0.86 Glucose 86 Calcium 8.7 Urine 08/20/24 Range/Units 21:45 Urine Color Yellow Urine Appearance Cloudy A (Clear) Urine pH 5.5 (4.5-7.5) Ur Specific [place] 1.023 (1.000-1.030) Urine Protein Trace H (Negative) Urine Glucose (UA) Negative (Negative)
[2024-08-21] MEDS: cefTRIAXone SODIUM 2,000 MG/50 ML BAG IV SCH (19:41)
[2024-08-22 05:03] LABS: BUN Creatinine Ratio 21.2 (10-20); Calcium 8.7 mg/dl (8.6-10.3); Creatinine Clr Calc Pharmacy 52.5 ml/min; Potassium 3.5 mmol/L (3.5-5.1)
--- NOTE | 2024-08-22 08:37 | Cardiology Progress Note ---
Date of Service August 22, 2024 Assessment & Plan (1) Acute on chronic diastolic HF (heart failure): (2) Chest pain: (3) Acute UTI (urinary tract infection): (4) Memory impairment: (5) HTN (hypertension): (6) Dyslipidemia: Plan Assessment: 88 year old female with memory impairment presents with 3 days of persistent chest heaviness, and significant lower extremity edema, known CHF noncompliant on her diuretic therapies. Plan: 1. Acute on Chronic diastolic heart failure 2. Chest pain -Patient reports that she does not follow with a percher -She has not been taking her Lasix due to having "accidents" -Unable to tell me what her diet has been. -Patient receiving IV lasix 20mg Daily and is diuresing well. Chest discomfort has resolved making it likely it was s/t HF. Assess volume status in AM -Strict I and O and daily weights. Close monitoring of renal function (hx of CKD), and serum electrolytes. Goal serum K > 4.0 and serum Mag > 2.0 -Echocardiogram pending to asses overall structure, and function -EKG with no acute changes. -Troponin negative x4. -Continue Toprol xl. 3. Acute UTI -as per management of primary team. 4. Memory impairment -Attempt to obtain better history from family 5. HTN -Slightly above target. -Continue toprol xl and Furosemide at this time. Hesitant to start [place]-I/ARB s/t stage III CKD. If pressures would trend up, may consider addition of amlodipine 6. Dyslipidemia -Continue Simvastatin 08/22/2024: -Patient demonstrates clinical improvement from a cardiac perspective. Continues with some increased BLE swelling -Continue IV Lasix today, and likely transition to PO dosing in AM -Continue strict I&O, daily weights with standing scale and close monitoring of both renal function and electrolytes. -Goal serum K> 4.0. Give Potassium Chloride 40meq x1 dose now. Goal serum Mag > 2.0 -Continue Toprol xl -Continue Simvastatin -Discussed case at bedside with primary team. Agree with PT consult. Case has been discussed with Dr. Benz. Further recommendations regarding plan of care as per his assessment. I spent a total of 30 minutes on the date of service in preparation, delivery, documentation of the care provided to the patient excluding any time spent in the performance of separately billed services. ERICKA [facility] Admission and Anticipated Discharge Date Admission Date: August 20, 2024 Supervising Physician Co-Signing Physician Notes Attending attestation: Case reviewed with the advanced practitioner. I have personally performed a history and physical examination on the patient. I have reviewed the advanced practitioner's documentation on the date of service referenced in note, and I agree with, and take responsibility for the plan of care. I spent a total of 20 minutes coordinating, documenting, and providing care for this patient excluding time spent in the performance of separately billed services or time spent by another provider. Sd Benz DO Subjective 08/22/2024: Patient seen and examined in follow up today. Feeling better. Denies any chest pain, pressure or palpitations, reports improvement in her breathing, no dizziness/lightheadedness. Patient continues with modest lower extremity swelling Labs, vitals, diagnostics, telemetry and documentation reviewed. Telemetry reviewed showing SR rates 70's, no acute events overnight. -750ml fluid deficit Serum K 3.5, supplementation ordered. Review of Systems Review of Systems: All systems reviewed & are unremarkable except as noted in HPI & below Physical Exam Constitutional: + obese; no acute distress Neck: normal visual inspection and trachea midline Respiratory: normal respiratory effort; no respiratory distress, no labored breathing and no cough Cardiovascular: Rate/Rhythm: regular rate and regular rhythm Heart Sounds: normal S1 and normal S2; no murmur Vessels: dorsalis pedis pulses present; no JVD Extremities: + edema (+2 BLE) Skin: + erythema (noted on bilateral Lower ext remities ) Psychiatric: Orientation: alert, oriented to person and cooperative Results & Data Vital Signs (Past 12 Hours) Vital Signs Temp Pulse Pulse Resp BP BP Pulse Ox 08/22/24 08:00 36.4 C L 74 16 137/39 L 92 08/22/24 07:02 76 08/22/24 06:35 76 08/22/24 00:34 36.6 C 08/22/24 00:15 81 20 08/21/24 23:30 87 16 157/80 H 08/21/24 23:06 86 19 08/21/24 22:54 92 H 21 08/21/24 22:03 79 18 08/21/24 21:33 87 17 08/21/24 21:06 81 20 08/21/24 20:33 99 H 21 O2 Del Method 08/22/24 08:00 Room Air 08/22/24 07:02 08/22/24 06:35 08/22/24 00:34 08/22/24 00:15 08/21/24 23:30 08/21/24 23:06 08/21/24 22:54 08/21/24 22:03 08/21/24 21:33 08/21/24 21:06 08/21/24 20:33 Laboratory Results Comprehensive Metabolic Panel 08/22/24 Range/Units 04:17 Sodium 140 (136-145) mmol/L Potassium 3.5 (3.5-5.1) mmol/L Chloride 106 (98-107) mmol/L Carbon Dioxide 28 (21-32) mmol/L BUN 21 (6-23) mg/dl Creatinine 0.99 (0.6-1.2) mg/dl Glucose 95 (70-99(Fasting)) mg/dl Calcium 8.7 (8.6-10.3) mg/dl Intake and Output 08/21/24 08/22/24 08/22/24 22:59 06:59 14:59 Intake Total 50 / 50 Output Total 300 / 800 300 / 800 Balance -250 / -750 -300 / -750 Intake: IV 50 / 50 cefTRIAXone SODIUM 2,000 mg In 50 / 50 50 ml @ 100 mls/hr IV Q24H [facility] Rx#:[id number] Output: Urine 300 / 800 300 / 800 Diagnostic Findings Echocardiogram 08/21/2024 LVEF 55-60% No wall motion abnormalities RV normal is size and function Grade II diastolic dysfunction PASP 44mmHg No significant valvular disease. (5) HTN (hypertension) Hypertension type: unspecified Qualified Code(s): I10 - Essential (primary) hypertension
[2024-08-22] MEDS: POTASSIUM CHLORIDE CRTAB 20 MEQ TABCR PO STA (09:15)
--- NOTE | 2024-08-22 14:15 | Hospitalist Progress Note ---
Date of Service August 22, 2024 Assessment & Plan (1) Chest pain: Plan Chest pain rule out ACS --CXR: Left lateral lung base opacification and blunting of the costophrenic angle. This could represent sequelae of atelectasis, pleural thickening, and/or small effusion. Clear left lung. Normal heart size. Patient comes in with pain across the chest, 4/10 in intensity, radiating to left arm, on and off for 3 days. relieved w/ aspirin and nitro --Troponin x 2 negative, trend further troponin. --ECHO: Mild concentric LVH. Left ventricle wall motion normal. EF 55 to 60%. Grade 2 diastolic dysfunction. Right ventricle is normal in size and function. Pulmonary systolic pressure is 44 mmHg --Chest pain likely noncardiac Continue aspirin, statin, metoprolol Appreciate cardiology input Acute on chronic exacerbation of diastolic CHF: POA Patient is not taking Lasix due to frequent accidents for a while now. BNP 164 Echo as above Continue IV Lasix>> position to oral Lasix 20 mg daily Monitor I's and O's, daily weight, volume status Appreciate cardiology input Suspected UTI Urine culture: 3 types of organisms present, all high counts. Empirically on Rocephin Other chronic medical conditions: HTN, HLD, memory impairment -- continue with/resume home meds as when able. DVT Px: Heparin SQ Code Status DNI/DNI Disposition PT OT prior to discharge Admission and Anticipated Discharge Date Admission Date: August 20, 2024 Subjective Patient is seen and examined at bedside States feeling well today Denies any chest pain, dyspnea, nausea, vomiting, abdominal pain Still has leg edema Offers no other complaints today Review of Systems 2 Review of Systems: All systems reviewed & are unremarkable except as noted in Subjective Physical Exam Physical Exam: Physical Exam: Vitals signs as noted above General Appearance:Obese, no apparent distress Head: normocephalic, Atraumatic Eyes: normal inspection, EOMI Neck: supple, Trachea midline Respiratory/Chest: Normal breath sounds, CTA, No accessory muscle use Cardiovascular: S1, S2, No murmur Abdomen/GI:Soft, Non tender, Bowel sounds present Extremities/Musculoskeletal:normal inspection, 2+edema Neurologic/Psych:AAOX3, grossly no focal neurological deficits Skin: normal color, warm Results & Data Results & Data Vital Signs (Past 12 Hours) Vital Signs Temp Pulse Pulse Resp BP Pulse Ox O2 Del Method 08/22/24 10:44 36.5 C 49 L 17 143/73 H 91 Room Air 08/22/24 08:00 36.4 C L 74 16 137/39 L 92 Room Air 08/22/24 07:02 76 08/22/24 06:35 76 Laboratory Results [facility] 08/22/24 04:17 Sodium 140 Potassium 3.5 Chloride 106 Carbon Dioxide 28 BUN 21 Creatinine 0.99 Glucose 95 Calcium 8.7
[2024-08-22] MEDS: cefTRIAXone SODIUM 2,000 MG/50 ML BAG IV SCH (15:01)
[2024-08-23 06:27] LABS: Hematocrit (blood only) 39.6 % (37.0-47.0); Mean Corpuscular Hemoglobin 31.6 pg (25.0-34.0); Mean Corpuscular Hgb Conc 32.8 g/dL (32.0-36.0); Mean Corpuscular Volume 96.1 fL (80.0-100.0); Mean Platelet Volume 10.2 fL (9.4-12.4); Platelet Count 227 K/uL (130-400); RDW Coefficient of Variation 15.8 % (11.5-14.5); RDW Standard Deviation 54.5 fL (36.4-46.3); Red Blood Count 4.12 M/uL (4.20-5.40); White Blood Count 7.04 K/ul (4.8-10.8)
[2024-08-23 06:51] LABS: Calcium 8.7 mg/dl (8.6-10.3); Creatinine Clr Calc Pharmacy 50.7 ml/min; Potassium 3.8 mmol/L (3.5-5.1)
[2024-08-23 07:51] VITALS: TEMP 97.7
[2024-08-23] MEDS: FUROSEMIDE 20 MG TAB PO SCH (08:03)
--- NOTE | 2024-08-23 08:18 | Cardiology Progress Note ---
Date of Service August 23, 2024 Assessment & Plan (1) Acute on chronic diastolic HF (heart failure): (2) Chest pain: (3) Acute UTI (urinary tract infection): (4) Memory impairment: (5) HTN (hypertension): (6) Dyslipidemia: Plan Assessment: 88 year old female with memory impairment presents with 3 days of persistent chest heaviness, and significant lower extremity edema, known CHF noncompliant on her diuretic therapies. Plan: 1. Acute on Chronic diastolic heart failure 2. Chest pain -Patient reports that she does not follow with a product marketing consultant -She has not been taking her Lasix due to having "accidents" -Unable to tell me what her diet has been. -Patient receiving IV lasix 20mg Daily and is diuresing well. Chest discomfort has resolved making it likely it was s/t HF. Assess volume status in AM -Strict I and O and daily weights. Close monitoring of renal function (hx of CKD), and serum electrolytes. Goal serum K > 4.0 and serum Mag > 2.0 -Echocardiogram pending to asses overall structure, and function -EKG with no acute changes. -Troponin negative x4. -Continue Toprol xl. 3. Acute UTI -as per management of primary team. 4. Memory impairment -Attempt to obtain better history from family 5. HTN -Slightly above target. -Continue toprol xl and Furosemide at this time. Hesitant to start [place]-I/ARB s/t stage III CKD. If pressures would trend up, may consider addition of amlodipine 6. Dyslipidemia -Continue Simvastatin 08/22/2024: -Patient demonstrates clinical improvement from a cardiac perspective. Continues with some increased BLE swelling -Continue IV Lasix today, and likely transition to PO dosing in AM -Continue strict I&O, daily weights with standing scale and close monitoring of both renal function and electrolytes. -Goal serum K> 4.0. Give Potassium Chloride 40meq x1 dose now. Goal serum Mag > 2.0 -Continue Toprol xl -Continue Simvastatin -Discussed case at bedside with primary team. Agree with PT consult. 08/23/2024: -Patient is doing well from a cardiac perspective today. -Euvolemic on exam. Transitioned to lasix 20mg PO Daily -Review of telemetry shows SR, rare tachycardia with activity, likely deconditioned. She is awaiting PT/OT eval. -Electrolytes stable. -Continue Toprol xl -Continue Simvastatin -No further cardiac workup is needed at this time. Please contact us with any new questions or concerns. When patient is appropriate for discharge, she will need close follow up in our clinic along with non-fasting labs. (orders placed in EPIC) -Discussed case in person with primary team who tentatively plans for discharge if cleared by PT/OT Case has been discussed with Dr. Matamoros. Further recommendations regarding plan of care as per his assessment. I spent a total of 30 minutes on the date of service in preparation, delivery, documentation of the care provided to the patient excluding any time spent in the performance of separately billed services. ERICKA Morris [facility] Admission and Anticipated Discharge Date Admission Date: August 20, 2024 Supervising Physician Co-Signing Physician Notes I have personally performed a history and physical examination on the patient. I have reviewed the advance practitioner's documentation, and I agree with, and take responsibility for the plan of care. Volume status improved since admission. Patient appears euvolemic on exam. Continue oral furosemide 20 mg daily, Toprol-XL, and simvastatin. Outpatient cardiology follow-up in 2 to 4 weeks. No further inpatient cardiac testing or intervention recommended at this time. Cardiology will sign off. Please call with additional concerns/questions. I spent a total of 25 minutes on the date of service in preparation, delivery, and documentation of the care provided to this patient, excluding any time spent in the performance of separately billed services. Александр Matamoros DO, [facility] Subjective 08/23/2024:Patient seen and examined in follow up today. Feeling well from a cardiac perspective. Denies any chest pain, pressure, palpitations, no shortness of breath, PND, pre-syncope, syncope or edema. Labs, vitals, diagnostics, telemetry and documentation reviewed. Telemetry reviewed showing SR/ST 70-110bpm. Patient had a rare tachycardic event noted on telemetry when she was ambulating to the restroom at 140bpm, quickly resolved. Rare PAC and PVC. -5kg weight loss Review of Systems Review of Systems: All systems reviewed & are unremarkable except as noted in HPI & below limited details due to cognitive status Physical Exam Constitutional: + obese; no acute distress Neck: normal visual inspection and trachea midline Respiratory: normal respiratory effort; no respiratory distress, no labored breathing and no cough Cardiovascular: Rate/Rhythm: regular rate and regular rhythm Heart Sounds: normal S1 and normal S2; no murmur Vessels: dorsalis pedis pulses present; no JVD Extremities: + edema (Trace BLE) Skin: no erythema Psychiatric: Orientation: alert, oriented to person and cooperative Results & Data Vital Signs (Past 12 Hours) Vital Signs Temp Pulse Pulse Resp BP Pulse Ox O2 Del Method 08/23/24 07:49 36.5 C 67 17 121/79 91 Room Air 08/23/24 06:52 85 08/23/24 03:29 36.8 C 83 18 135/85 92 Room Air 08/22/24 23:09 37.1 C 90 18 136/78 91 Room Air Laboratory Results CBC 08/23/24 Range/Units 05:29 WBC 7.04 (4.8-10.8) K/ul RBC 4.12 L (4.20-5.40) M/uL Hgb 13.0 (12.0-16.0) g/dl Hct 39.6 (37.0-47.0) % Plt Count 227 (130-400) K/uL Comprehensive Metabolic Panel 08/23/24 Range/Units 05:29 Sodium 142 (136-145) mmol/L Potassium 3.8 (3.5-5.1) mmol/L Chloride 108 H (98-107) mmol/L Carbon Dioxide 28 (21-32) mmol/L BUN 27 H (6-23) mg/dl Creatinine 1.00 (0.6-1.2) mg/dl Glucose 95 (70-99(Fasting)) mg/dl Calcium 8.7 (8.6-10.3) mg/dl Intake and Output 08/22/24 08/23/24 08/23/24 22:59 06:59 14:59 Intake Total 50 / 690 Balance 50 / 690 Intake: IV 50 / 50 cefTRIAXone SODIUM 2,000 mg In 50 / 50 50 ml @ 100 mls/hr IV Q24H PAT Rx#:[id number] Other: # Unmeasured Voids 1 1 Weight 103.3 kg Weight Measurement Method Built in [facility] (5) HTN (hypertension) Hypertension type: unspecified Qualified Code(s): I10 - Essential (primary) hypertension
[2024-08-23] MEDS: cefTRIAXone SODIUM 2,000 MG/50 ML BAG IV SCH (09:15)
[2024-08-23 10:54] VITALS: BP 104/67; RESP 18; O2SAT 93
--- NOTE | 2024-08-23 11:36 | Hospitalist Progress Note ---
Date of Service August 23, 2024 Assessment & Plan (1) Chest pain: Plan Chest pain rule out ACS --CXR: Left lateral lung base opacification and blunting of the costophrenic angle. This could represent sequelae of atelectasis, pleural thickening, and/or small effusion. Clear left lung. Normal heart size. Patient comes in with pain across the chest, 4/10 in intensity, radiating to left arm, on and off for 3 days. relieved w/ aspirin and nitro --Troponin x 2 negative, trend further troponin. --ECHO: Mild concentric LVH. Left ventricle wall motion normal. EF 55 to 60%. Grade 2 diastolic dysfunction. Right ventricle is normal in size and function. Pulmonary systolic pressure is 44 mmHg --Chest pain likely noncardiac Continue aspirin, statin, metoprolol Appreciate cardiology input Plan to discharge home today Advised to follow-up with cardiology on discharge Acute on chronic exacerbation of diastolic CHF: POA Patient is not taking Lasix due to frequent accidents for a while now. BNP 164 Echo as above Continue IV Lasix>> transitioned to oral Lasix 20 mg daily Monitor I's and O's, daily weight, volume status Appreciate cardiology input Volume status improved Continue home diuretics Suspected UTI--less likely Urine culture: 3 types of organisms present, all high counts. Empirically on Rocephin completed 3-day course Other chronic medical conditions: HTN, HLD, memory impairment -- continue with/resume home meds as when able. DVT Px: Heparin SQ Code Status DNI/DNI Disposition Home Admission and Anticipated Discharge Date Admission Date: August 20, 2024 Subjective Patient is seen and examined at bedside Doing well Offers no new complaints Updated patient's daughter over the phone Discussed with cardiology today Leg edema improved Denies any chest pain, dyspnea, nausea, vomiting, abdominal pain Plan to discharge home today Review of Systems Review of Systems: All systems reviewed & are unremarkable except as noted in Subjective Physical Exam Physical Exam: Physical Exam: Vitals signs as noted above General Appearance:Obese, no apparent distress Head: normocephalic, Atraumatic Eyes: normal inspection, EOMI Neck: supple, Trachea midline Respiratory/Chest: Normal breath sounds, CTA, No accessory muscle use Cardiovascular: S1, S2, No murmur Abdomen/GI:Soft, Non tender, Bowel sounds present Extremities/Musculoskeletal:normal inspection, 2+edema Neurologic/Psych:AAOX3, grossly no focal neurological deficits Skin: normal color, warm Results & Data Results & Data Vital Signs (Past 12 Hours) Vital Signs Temp Pulse Pulse Resp BP Pulse Ox O2 Del Method 08/23/24 10:53 36.5 C 75 18 104/67 93 Room Air 08/23/24 08:00 Room Air 08/23/24 07:49 36.5 C 67 17 121/79 91 Room Air 08/23/24 06:52 85 08/23/24 03:29 36.8 C 83 18 135/85 92 Room Air Laboratory Results Short CBC 08/23/24 Range/Units 05:29 WBC 7.04 (4.8-10.8) K/ul Hgb 13.0 (12.0-16.0) g/dl Hct 39.6 (37.0-47.0) % Plt Count 227 (130-400) K/uL BMP 08/23/24 05:29 Sodium 142 Potassium 3.8 Chloride 108 H Carbon Dioxide 28 BUN 27 H Creatinine 1.00 Glucose 95 Calcium 8.7
--- NOTE | 2024-08-23 11:46 | Discharge Summary ---
Date of Service August 23, 2024 Admission HPI Per Admitting Provider 88-year-old lady with PMH of diastolic heart failure, HLD, HTN, CKD stage IIIa, breast cancer s/p bilateral mastectomy, memory impairment, adjustment disorder with depressed mood presented to the ED with complaint of chest pain on and off for last 3 days. Patient does not very much remember her symptoms but patient's daughter Marleen was at bedside who helped with history taking. Patient has this pain across the chest, on and off for about 3 days, dull in nature, 4/10 in intensity when it is present, it was generally lasting for about 10 minutes before resolving on its own but it did not improve on its own today prompting them to come to the emergency. The discomfort/pain was radiating to left arm. The pain was relieved w/ nitro and aspirin per d/w ED physician. Patient denies shortness of breath/palpitations/belly pain. Per daughter, no fever/cough/vomiting/acute changes in appetite or bowel habits. Patient denies pain and burning with passing urine/sore throat and nausea. patient generally uses walker at baseline. Per daughter, patient does not use tobacco or alcohol. Medications reviewed with patient's daughter at bedside. DNR/DNI as per my discussion with Marleen. Plan of care discussed with patient and her daughter at bedside in detail, they voiced understanding. Admission Exam Per Admitting Provider GENERAL: Alert and oriented x3. NAD, on RA. HEENT: No pallor, no icterus. Pupils equal, round and reactive to light. Oral mucosa moist. NECK: No JVD, no neck masses. HEART: S1 and S2 heard. Regular rate and rhythm. No murmur, no gallop. RESPIRATORY SYSTEM: Normal AP diameter. No accessory muscle use. No wheezing, no crackles. ABDOMEN: Soft, bowel sounds present, nontender, no distention. CENTRAL NERVOUS SYSTEM: No facial droop. Speech is clear. Obeys simple commands. Moves extremities. EXTREMITIES: 2-3+ ble edema, no erythema seen. Principal Diagnosis Acute on chronic exacerbation of diastolic CHF Discharge Data Allergies Allergy/AdvReac Type Severity Reaction Status Date / Time atenolol Allergy Unknown ON THE Verified 12/04/23 15:55 [facility] quinidine Allergy Unknown ON THE Verified 12/04/23 15:55 [facility] Consultations 08/20/24 19:54 ED Decision to Admit Stat 08/20/24 20:12 Consult Cardiology Routine Procedures Performed Laboratory Results WBC 7.04 K/ul (4.8-10.8) 08/23/24 05: RBC 4.12 M/uL (4.20-5.40) L 08/23/24 05:29 Hgb 13.0 g/dl (12.0-16.0) 08/23/24 05: Hct 39.6 % (37.0-47.0) 08/23/24 05: MCV 96.1 fL (80.0-100.0) 08/23/24 05: MCH 31.6 pg (25.0-34.0) 08/23/24 05: MCHC 32.8 g/dL (32.0-36.0) 08/23/24 05: RDW Std Deviation 54.5 fL (36.4-46.3) H 08/23/24 05: RDW Coeff of Dimitrios 15.8 % (11.5-14.5) H 08/23/24 05: Plt Count 227 K/uL (130-400) 08/23/24 05: MPV 10.2 fL (9.4-12.4) 08/23/24 05:29 Immature Gran % (Auto) 1.4 % 08/20/24 15:37 Neut % (Auto) 46.7 % 08/20/24 15:37 Lymph % (Auto) 37.1 % 08/20/24 15:37 [place] % (Auto) 9.8 % 08/20/24 15:37 Eos % (Auto) 4.4 % 08/20/24 15:37 Baso % (Auto) 0.6 % 08/20/24 15:37 Neut # (Auto) 3.31 K/uL (1.40-6.50) 08/20/24 15:37 Lymph # (Auto) 2.62 K/uL (1.20-3.40) 08/20/24 15:37 [place] # (Auto) 0.69 K/uL (0.11-0.59) H 08/20/24 15:37 Eos # (Auto) 0.31 K/uL (0.00-0.50) 08/20/24 15:37 Baso # (Auto) 0.04 K/uL (0.00-0.20) 08/20/24 15:37 Immature Gran # (Auto) 0.10 K/uL (0.01-0.20) 08/20/24 15:37 PT 11.4 Seconds (9.0-12.0) 08/20/24 15:37 INR 1.1 (0.9-1.1) 08/20/24 15:37 APTT 26 Seconds (21-31) 08/20/24 15:37 PTT Ratio 1.0 08/20/24 15:37 Sodium 142 mmol/L (136-145) 08/23/24 05:29 Potassium 3.8 mmol/L (3.5-5.1) 08/23/24 05:29 Chloride 108 mmol/L (98-107) H 08/23/24 05:29 Carbon Dioxide 28 mmol/L (21-32) 08/23/24 05:29 Anion Gap 6 (3-11) 08/23/24 05:29 BUN 27 mg/dl (6-23) H 08/23/24 05:29 Creatinine 1.00 mg/dl (0.6-1.2) 08/23/24 05:29 Est Cr Clr Drug Dosing 50.7 ml/min 08/23/24 05:29 eGFR 54.53 08/23/24 05:29 BUN/Creatinine Ratio 27.0 (10-20) H 08/23/24 05:29 Glucose 95 mg/dl (70-99(Fasting)) 08/23/24 05:29 Calcium 8.7 mg/dl (8.6-10.3) 08/23/24 05:29 Phosphorus 3.8 mg/dl (2.5-4.9) 08/21/24 05:55 Magnesium 1.8 mg/dl (1.7-2.4) 08/21/24 05:55 Total Bilirubin 0.4 mg/dl (0.2-1.0) 08/20/24 15:37 AST 23 U/L (13-39) 08/20/24 15:37 ALT 16 U/L (7-52) 08/20/24 15:37 Alkaline Phosphatase 76 U/L (34-104) 08/20/24 15:37 Troponin I High Sens 6.4 pg/ml (0-14) 08/21/24 05:55 B-Natriuretic Peptide 164 pg/ml (0-100) H 08/20/24 16:02 Total Protein 6.1 gm/dl (6.0-8.3) 08/20/24 15:37 Albumin 3.7 gm/dl (3.4-5.0) 08/20/24 15:37 Globulin 2.4 gm/dl (2.5-4.0) L 08/20/24 15:37 Albumin/Globulin Ratio 1.5 (0.9-2) 08/20/24 15:37 Urine Color Yellow 08/20/24 21:45 Urine Appearance Cloudy (Clear) A 08/20/24 21:45 Urine pH 5.5 (4.5-7.5) 08/20/24 21:45 Ur Specific [place] 1.023 (1.000-1.030) 08/20/24 21:45 Urine Protein Trace (Negative) H 08/20/24 21:45 Urine Glucose (UA) Negative (Negative) 08/20/24 21:45 Urine Ketones Trace (Negative) H 08/20/24 21:45 Urine Blood Negative (Negative) 08/20/24 21:45 Urine Nitrite Positive (Negative) A 08/20/24 21:45 Urine Bilirubin Negative (Negative) 08/20/24 21:45 Urine Urobilinogen Negative (Negative) 08/20/24 21:45 Ur Leukocyte Esterase 1+ (Negative) H 08/20/24 21:45 Urine WBC (Auto) >50 /hpf (0-5) H 08/20/24 21:45 Urine RBC (Auto) 0-2 /hpf (0-2) 08/20/24 21:45 U Hyaline Cast (Auto) 0-2 /lpf (0-2) 08/20/24 21:45 U Epithel Cells (Auto) 3-5 /hpf (0-2) H 08/20/24 21:45 Urine Bacteria (Auto) 4+ (None Seen) H 08/20/24 21:45 Calcium Oxalate Crystal Present (None Prsent) A 08/20/24 21:45 Nasal Screen MRSA (PCR) Negative (Negative) 08/21/24 14:56 Impressions Chest X-Ray 08/20/24 15:32 HISTORY: Chest pain. TECHNIQUE: Portable AP radiographs of the chest. COMPARISON: None FINDINGS: Mild left lateral lung base opacity. The lungs are otherwise clear.No pneumothorax. No right pleural effusion. Top normal heart size. Left-sided aortic arch. Midline trachea. No acute osseous abnormality. Left axillary surgical clips. Included upper abdomen is unremarkable. IMPRESSION: 1. Left lateral lung base opacification and blunting of the costophrenic angle. This could represent sequelae of atelectasis, pleural thickening, and/or small effusion. 2. Clear left lung. 3. Normal heart size. Electronically signed by Loco Akbar 08-20-2024 4:02 PM Hospital Course (1) Chest pain: Plan Chest pain rule out ACS --CXR: Left lateral lung base opacification and blunting of the costophrenic angle. This could represent sequelae of atelectasis, pleural thickening, and/or small effusion. Clear left lung. Normal heart size. Patient comes in with pain across the chest, 4/10 in intensity, radiating to left arm, on and off for 3 days. relieved w/ aspirin and nitro --Troponin x 2 negative, trend further troponin. --ECHO: Mild concentric LVH. Left ventricle wall motion normal. EF 55 to 60%. Grade 2 diastolic dysfunction. Right ventricle is normal in size and function. Pulmonary systolic pressure is 44 mmHg --Chest pain likely noncardiac Continue aspirin, statin, metoprolol Appreciate cardiology input Plan to discharge home today Advised to follow-up with cardiology on discharge Acute on chronic exacerbation of diastolic CHF: POA Patient is not taking Lasix due to frequent accidents for a while now. BNP 164 Echo as above Continue IV Lasix>> transitioned to oral Lasix 20 mg daily Monitor I's and O's, daily weight, volume status Appreciate cardiology input Volume status improved Continue home diuretics Suspected UTI--less likely Urine culture: 3 types of organisms present, all high counts. Empirically on Rocephin completed 3-day course Other chronic medical conditions: HTN, HLD, memory impairment -- continue with/resume home meds as when able. DVT Px: Heparin SQ Code Status DNI/DNI Disposition Home Total Time Total Time Spent Total Time Spent (In Minutes): 54 minutes Discharge Plan Discharge Items Patient Disposition: Home - Self-Care Reason For Visit: CHEST PAIN Discharge Diagnosis: Acute on chronic exacerbation of diastolic CHF Activity: Per Instructions section Exercise/Sports: Gradually increase as tolerated Non-emergency contact: Primary Care Provider and Ui Designer Call non-emergency contact if: you have any medication questions, your symptoms worsen, your pain is concerning for you and you have a fever Follow-up/Referrals: Dorina Hodges DO [Primary Care Provider] - (Date & Time 08/26/2024 2:00 PM Provider: Dorina Hodges DO [facility] ) Diet: Heart Healthy Addtl Attending Provider Instructions: Follow-up with your primary care physician on 08/26/2024 2:00 PM Follow-up with your catheter finisher and inspector in 3 to 4 weeks Seek immediate medical attention if your symptoms reoccur or worsen Please take all medications as instructed on discharge list below. Please call if you have any questions or problems. You can reach a [facility] hospitalist on duty at [facility] 24 hours a day by calling [phone] Call your Primary Care doctor if any of the following symptoms or problems start or get worse: * Shortness of breath or difficulty breathing * Wake up at night short of breath * Chest pain * Cough * Swelling of your hands, feet, or legs * More fatigued or tired with your normal activity * Palpitations - sudden fast heart beats WEIGHT * Weigh yourself every morning after using the bathroom. * Use the same scale. * Wear the same amount of clothing. * Write your weight down on a chart. * Call your Primary Care doctor if you gain more than 2-3 pounds in 1-2 days. MEDICATIONS * Use this discharge instruction sheet for medication instructions. * Take your medications at the time your doctor ordered. * Do not skip a dose of your medicines. * If you miss a dose of medicine, take it as soon as possible, but DO NOT DOUBLE A DOSE. * Read your medicine information when you get home. * Know all of the side effects of your medicine. If in doubt, ask your pharmacist * Call your Primary Care doctor's office if you have any side effects. * Be sure all of your doctors know what medicine and herbs you take (including cold, flu, and herbal medicine). Take the following with you to your follow-up doctor appointments: * Weight Chart * Medication List * List of questions Do not drink excessive alcohol, beer or wine. Pending Studies at Discharge: No Stand-Alone Forms: My [facility], Smoking Cessation Medications and DC Order Prescriptions: New furosemide 20 mg Tablet 20 mg PO QAM Qty: 30 1RF Continued simvastatin 10 mg tablet 10 mg PO HS multivitamin Tablet 1 tab PO HS donepezil [Aricept] 5 mg Tablet 5 mg PO HS omega-3 fatty acids 1,000 mg Capsule 2,000 mg PO DAILY cholecalciferol (vitamin D3) [Vitamin D3] 25 mcg (1,000 unit) Capsule 25 mcg PO DAILY ginkgo biloba [Ginkoba] 40 mg Tablet 120 mg PO DAILY Rx Instructions: give with meal/snack aspirin 81 mg Tablet,Chewable 81 mg PO DAILY metoprolol succinate 25 mg tablet extended release 24 hr 25 mg PO QAM Rx Instructions: pt is supposed to take 2 tabs a day, but her med list says she takes 1 a day. Discharge Orders: Discharge Order (Routine); Ordered 08/23/24 Ordered By: Juan David Dickens Admission Data Admit Date/Time: 08/20/24 20:14 Attending Provider: Juan David Dickens Admit Provider: Vlad York Primary Care Provider: Dorina Hodges Other Providers: Vlad York; Sd Benz
[2024-08-23 14:58] VITALS: PULSE 75
== END 2024-08-23 16:50 | disposition home or self-care (01) | DRG 291 ==
LOC: ED 15:23 → EDINP 20:14 → SUATTDRO 20:14 → 1E 22:09 → 2S 08-22 05:56